=== PATIENT | male | born 1950 | race Caucasian/White ===

== ENCOUNTER 2017-10-10 09:21 | Observation (INO) | payer MEDICARE ==
[~2017-10-10] VITALS: Ht 172.7 cm; Wt 107.0 kg
[~2017-10-10 09:21] MED LIST: ATOR40TA70 PO; ATOR80TA2 PO; AZIT200S47 PO; Aspirin PO; BUPR150T9 PO; CYCL10TA9 PO; DCS100C PO; DONE10TA5 PO; DONE5TAB4 PO; FLT05NA16 NS; HCT25T PO; LEVO500T69 PO; LISI-556 PO; LISI10TA2 PO; LORA0.5T PO; LORA0.5T34 PO; LSNP10T PO; OMEG1CAP51 PO; OMEP20CA12 PO; OXYC-12 PO; OXYC-190 PO; PRX20T PO; RANO10003 PO; SIMV80TA3 PO; WARF10TA4 PO; WARF5TAB6 PO; WRF10T PO; WRF5T
--- OUTSIDE RECORDS SUMMARY | 2017-10-10 09:27 | XMS REPORT ---
Author Author PHUONG SIERRA [facility] eClinicalWorks Address Unknown Phone Unavailable Care Team Providers Care Warehouse Representative Name Role Phone PHUONG SIERRA CP Unavailable Allergies No Known Allergies Problems Problem Type Condition Code Onset Dates Condition Status Assessment Wrist fracture, right S62.101A Active Problem Essential hypertension, benign 401.1 Active Problem ZOSTAVAX DX V05.8 Active Problem Cough 786.2 Active Problem Other diseases of nasal cavity and sinuses 478.19 Active Problem Acute pharyngitis 462 Active Problem Other and unspecified noninfectious gastroenteritis and colitis 558.9 Active Problem Insomnia, unspecified 780.52 Active Problem Unspecified disorders of bursae and tendons in shoulder region 726.10 Active Problem Pain in joint, shoulder region 719.41 Active Medications No Known Medications Results No Known Results Summary Purpose eClinicalWorks Submission
--- OUTSIDE RECORDS SUMMARY | 2017-10-10 09:27 | XMS REPORT ---
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 Unknown Non Drug Allergy Sep, Unknown SOCIAL HISTORY No smoking Hx information available PLAN OF CARE VITAL SIGNS Height 67 in 2016-09-23 Weight 227 lbs 2016-09-23 Temperature 98.1 degrees Fahrenheit 2016-09-23 Heart Rate 60 bpm 2016-09-23 Respiratory Rate 22 2016-09-23 BMI 35.55 kg/m2 2016-09-23 Blood pressure systolic 140 mmHg 2016-09-23 Blood pressure diastolic 86 mmHg 2016-09-23 MEDICATIONS Medication Instructions Dosage Frequency Start Date End Date Duration Status Coumadin 10 mg Orally MTWF then 12.5 on &VITAL 1 tablet Active donepezil 5 mg take 1 tablet (5 mg) by oral route once daily in the evening Dec, Active Wellbutrin SR 150 MG TAKE ONE TABLET BY MOUTH TWICE DAILY 30 Active Aspirin 81 mg 1 tablet by Oral route 1 time per day Oct, Active Ativan 0.5 mg 1 tablet by Oral route 1 time per day PRN Feb, Active Fish Oil 1000 MG Orally Once a day 4 capsule 24h Active Flonase 50 mcg/actuation 1 sprays by Nasal route 2 times per dayin each nostril Apr, Active Tylenol/Codeine #3 300-30 MG Orally every 6 hrs 1 tablet as needed 6h Sep, Active atorvastatin 40 mg take 1 tablet (40 mg) by oral route once daily Mar, Active Hydrochlorothiazide 25 MG Orally Once a day 1 tablet 24h Active Omeprazole 20 mg take 1 capsule (20 mg) by oral route once daily before a meal Dec, Active Lisinopril 5 MG Orally Once a day 1 tablet 24h Active Promethazine-Codeine 6.25-10 MG/5ML Orally every 6 hrs 5 ml as needed 6h Aug, Active RESULTS Name Result Date Reference Range Xray : Chest (IN HOUSE) 2016-09-23 PROCEDURES Procedure Date Ordered Related Diagnosis Body Site CHEST X-RAY Sep 23, 2016 [facility] VISIT ESTABLISHED PATIENT Sep 23, 2016 Office Visit, Est Pt., Level 3 Sep 23, 2016 IMMUNIZATIONS No Known Immunizations
--- OUTSIDE RECORDS SUMMARY | 2017-10-10 09:27 | XMS REPORT ---
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 Unknown Non Drug Allergy Aug, Unknown SOCIAL HISTORY No smoking Hx information available PLAN OF CARE Activity Details Follow Up 2 - 3 Days, prn Reason: VITAL SIGNS Height 67 in 2016-09-14 Weight 232.4 lbs 2016-09-14 Temperature 97.1 degrees Fahrenheit 2016-09-14 Heart Rate 52 bpm 2016-09-14 Respiratory Rate 18 2016-09-14 BMI 36.40 kg/m2 2016-09-14 Blood pressure systolic 152 mmHg 2016-09-14 Blood pressure diastolic 82 mmHg 2016-09-14 MEDICATIONS Medication Instructions Dosage Frequency Start Date End Date Duration Status Fish Oil 1000 MG Orally Once a day 4 capsule 24h Active Flonase 50 mcg/actuation 1 sprays by Nasal route 2 times per dayin each nostril Apr, Active Ativan 0.5 mg 1 tablet by Oral route 1 time per day PRN Feb, Active Wellbutrin SR 150 MG TAKE ONE TABLET BY MOUTH TWICE DAILY 30 Active Omeprazole 20 mg take 1 capsule (20 mg) by oral route once daily before a meal Dec, Active Hydrochlorothiazide 25 MG Orally Once a day 1 tablet 24h Active Lisinopril 5 MG Orally Once a day 1 tablet 24h Active PredniSONE 10 mg Orally twice a day 1 tablet 12h Aug, Sep, 05 days Active atorvastatin 40 mg take 1 tablet (40 mg) by oral route once daily Mar, Active Aspirin 81 mg 1 tablet by Oral route 1 time per day Oct, Active Promethazine-Codeine 6.25-10 MG/5ML Orally every 6 hrs 5 ml as needed 6h Aug, Active Guaifenesin 400 MG Orally every 4 hrs 1 tablet as needed 4h Sep, Active donepezil 5 mg take 1 tablet (5 mg) by oral route once daily in the evening Dec, Active Coumadin 10 mg Orally MTWF then 12.5 on & 1 tablet Active RESULTS No Results PROCEDURES Procedure Date Ordered Related Diagnosis Body Site [facility] VISIT ESTABLISHED PATIENT Sep 14, 2016 Office Visit, Est Pt., Level 3 Sep 14, 2016 IMMUNIZATIONS No Known Immunizations
--- OUTSIDE RECORDS SUMMARY | 2017-10-10 09:27 | XMS REPORT ---
Author CRISS Jose [facility] eClinicalWorks Address Unknown Phone Unavailable Care Team Providers Care Food Order Delivery Runner Name Role Phone CRISS FUENTES CP Unavailable Allergies, Adverse Reactions, Alerts Substance Reaction Event Type N.K.D.A. Info Not Available Non Drug Allergy Problems Problem Type Condition Code Onset Dates Condition Status Assessment Bronchitis J40 Active Problem Essential hypertension, benign 401.1 Active [...] in joint, shoulder region 719.41 Active Medications Medication Code System Code Instructions Start Date End Date Status Dosage Flonase NDC 0 50 mcg/actuation 2 spray(s) intranasally 2 times a day May 14, 2013 1 sprays by Nasal route 2 times per dayin each nostril Omeprazole [facility] [address]-98 20 mg December 27, 2013 take 1 capsule ( 20 mg) by oral route once daily before a meal Coumadin [facility] [address]-34 10 MG Orally MWF then 12.5 on TWSS 1 tablet Hydrochlorothiazide [facility] [address]-34 25 MG Orally Once a day 1 tablet Ativan [facility] [address]-36 0.5 mg February 18, 2014 1 tablet by Oral route 1 time per day PRN donepezil NDC 0 5 mg December 27, 2013 take 1 tablet (5 mg) by oral route once daily in the evening Aspirin [facility] [address]-00 81 mg Nov 15, 2014 1 tablet by Oral route 1 time per day atorvastatin NDC 0 40 mg March 27, 2014 take 1 tablet (40 mg) by oral route once daily Lisinopril [facility] [address]-14 5 MG Orally Once a day 1 tablet Lorazepam NDC 0 Oral 1 tab Doxycycline Hyclate [facility] [address]-87 100 MG Orally 2 times a day Sep 15, 2015 Sep 22, 2015 1 capsule Procedures Procedure Coding System Code Date Office Visit, Ken Pt., Level 2 CPT-4 74891 Sep 15, 2015 [facility] VISIT ESTABLISHED PATIENT CPT-4 G0467 Sep 15, 2015 Vital Signs Date/Time: Sep 15, 2015 Temperature 97.6 F Weight 231.1 lbs Height 67 in BMI 36.19 Index Blood Pressure Diastolic 74 mmHg Blood Pressure Systolic 142 mmHg Cardiac Monitoring Heart Rate 64 bpm Results No Known Results Summary Purpose eClinicalWorks Submission
--- OUTSIDE RECORDS SUMMARY | 2017-10-10 09:27 | XMS REPORT ---
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 Unknown Non Drug Allergy Sep, Unknown SOCIAL HISTORY No smoking Hx information available PLAN OF CARE VITAL SIGNS Height 67 in 2016-10-07 Weight 231 lbs 2016-10-07 Temperature 97.7 degrees Fahrenheit 2016-10-07 Heart Rate 54 bpm 2016-10-07 Respiratory Rate 22 2016-10-07 Oximetry on room air:98 % 2016-10-07 BMI 36.18 kg/m2 2016-10-07 Blood pressure systolic 130 mmHg 2016-10-07 Blood pressure diastolic 80 mmHg 2016-10-07 MEDICATIONS Medication Instructions Dosage Frequency Start Date End Date Duration Status Omeprazole 20 mg take 1 capsule (20 mg) by oral route once daily before a meal Dec, Active Wellbutrin SR 150 MG TAKE ONE TABLET BY MOUTH TWICE DAILY 30 Active Flonase 50 mcg/actuation 1 sprays by Nasal route 2 times per dayin each nostril Apr, Active Aspirin 81 mg 1 tablet by Oral route 1 time per day Oct, Active Ativan 0.5 mg 1 tablet by Oral route 1 time per day PRN Feb, Active Fish Oil 1000 MG Orally Once a day 4 capsule 24h Active atorvastatin 40 mg take 1 tablet (40 mg) by oral route once daily Mar, Active Coumadin 10 mg Orally MTWF then 12.5 on &VITAL 1 tablet Active donepezil 5 mg take 1 tablet (5 mg) by oral route once daily in the evening Dec, Active Lisinopril 5 MG Orally Once a day 1 tablet 24h Active Tessalon Perles 100 MG Orally Three times a day 1 capsule as needed 8h Sep, Active Promethazine-Codeine 6.25-10 MG/5ML Orally every 6 hrs 5 ml as needed 6h Aug, Active Hydrochlorothiazide 25 MG Orally Once a day 1 tablet 24h Active RESULTS No Results PROCEDURES Procedure Date Ordered Related Diagnosis Body Site MEASURE BLOOD OXYGEN LEVEL Oct 07, 2016 [facility] VISIT ESTABLISHED PATIENT Oct 07, 2016 Office Visit, Est Pt., Level 3 Oct 07, 2016 IMMUNIZATIONS No Known Immunizations
--- OUTSIDE RECORDS SUMMARY | 2017-10-10 09:27 | XMS REPORT ---
Author Author TYRESE WHITAKER Organization eClinicalWorks Address Unknown Phone Unavailable Care Team Providers Care Photostat Operator Helper Name Role Phone TYRESE WHITAKER CP Unavailable Allergies No Known Allergies Problems Problem Type Condition Code Onset Dates Condition Status Problem Essential hypertension, benign 401.1 Active Problem [...]
--- OUTSIDE RECORDS SUMMARY | 2017-10-10 09:27 | XMS REPORT ---
Author PHUONG Jamison [facility] eClinicalWorks Address Unknown Phone Unavailable Care Team Providers Care In Tube Conversion Technician Name Role Phone PHUONG SIERRA CP Unavailable Allergies, Adverse Reactions, Alerts Substance Reaction Event Type N.K.D.A. Info Not Available Non Drug Allergy Problems Problem Type Condition Code Onset Dates Condition Status Assessment Fall due to stumbling W01.0XXA Active Problem Essential hypertension, benign 401.1 Active Problem ZOSTAVAX DX V05.8 Active Assessment Pain in right arm M79.601 Active Problem Cough 786.2 Active Problem Other [...] Instructions Start Date End Date Status Dosage Omeprazole [facility] [address]-28 20 mg December 27, 2013 take 1 capsule ( 20 mg) by oral route once daily before a meal donepezil NDC 0 5 mg December 27, 2013 take 1 tablet (5 mg) by oral route once daily in the evening Lorazepam ND 0 Oral 1 tab Hydrochlorothiazide [facility] [address]-32 25 MG Orally Once a day 1 tablet Ativan [facility] 2[facility] [address]-21 0.5 mg February 18, 2014 1 tablet by Oral route 1 time per day PRN atorvastatin NDC 0 40 mg March 27, 2014 take 1 tablet (40 mg) by oral route once daily Coumadin [facility] 2[facility] [address]-76 10 MG Orally MWF then 12.5 on TWSS 1 tablet Lisinopril [facility]NOTE 2] [address]-75 5 MG Orally Once a day 1 tablet Flonase [facility]NOTE 2] [address]-58 50 mcg/actuation 2 spray(s) intranasally 2 times a day May 14, 2013 1 sprays by Nasal route 2 times per dayin each nostril Aspirin [facility] 2] [address]-90 81 mg Nov 15, 2014 1 tablet by Oral route 1 time per day Procedures Procedure Coding System Code Date [facility] VISIT ESTABLISHED PATIENT CPT-4 G0467 Aug 15, 2015 Office Visit, Est Pt., Level 3 CPT-4 03600 Aug 15, 2015 X-RAY EXAM OF WRIST CPT-4 03926 Aug 15, 2015 Vital Signs Date/Time: Aug 15, 2015 Temperature 97.6 F Weight 230 lbs Height 67 in BMI 36.02 Index Blood Pressure Diastolic 70 mmHg Blood Pressure Systolic 142 mmHg Cardiac Monitoring Heart Rate 64 bpm Results No Known Results Summary Purpose eClinicalWorks Submission
--- OUTSIDE RECORDS SUMMARY | 2017-10-10 09:27 | XMS REPORT ---
Author TYRESE Lee [facility] eClinicalWorks Address Unknown Phone Unavailable Care Team Providers Care Geoduck Diver Name Role Phone TYRESE WHITAKER CP Unavailable Allergies, Adverse Reactions, Alerts Substance [...] Instructions Start Date End Date Status Dosage atorvastatin NDC 0 40 mg March 27, 2014 take 1 tablet (40 mg) by oral route once daily ProAir HFA [facility] [address]-18 90 mcg/Actuation Sep 28, 2011 inhale 2 puffs by inhalation route every 4-6 hours as neededPRN Lorazepam NDC 0 Oral 1 tab Zithromax Z-Ayush [facility] [address]-91 250 MG Orally Once a day Oct 01, 2015 Oct 06, 2015 2 tablets on the first day, then 1 tablet daily for 4 days donepezil NDC 0 5 mg December 27, 2013 take 1 tablet (5 mg) by oral route once daily in the evening Omeprazole [facility] [address]-58 20 mg December 27, 2013 take 1 capsule ( 20 mg) by oral route once daily before a meal Guaifenesin [facility] [address]-24 400 MG Orally every 4 hrs Oct 01, 2015 1 tablet as needed Coumadin [facility] [address]-49 10 MG Orally MWF then 12.5 on TWSS 1 tablet Aspirin [facility] [address]-24 81 mg Nov 15, 2014 1 tablet by Oral route 1 time per day Lisinopril [facility] [address]-97 5 MG Orally Once a day 1 tablet Flonase NDC 0 50 mcg/actuation 2 spray(s) intranasally 2 times a day May 14, 2013 1 sprays by Nasal route 2 times [place] [address]-05 0.5 mg February 18, 2014 1 tablet by Oral route 1 time per day PRN Hydrochlorothiazide [facility] [address]-62 25 MG Orally Once a day 1 tablet Procedures Procedure Coding System Code Date [facility] VISIT ESTABLISHED PATIENT CPT-4 G0467 Oct 01, 2015 Office Visit, Est Pt., Level 3 CPT-4 64683 Oct 01, 2015 MEASURE BLOOD OXYGEN LEVEL CPT-4 02315 Oct 01, 2015 Vital Signs Date/Time: Oct 01, 2015 Temperature 97.7 F Weight 230 lbs Height 67 in Oximetry 97 % Blood Pressure Diastolic 68 mmHg Blood Pressure Systolic 144 mmHg Cardiac Monitoring Heart Rate 52 bpm BMI 36.02 Index Results No Known Results Summary Purpose eClinicalWorks Submission
--- OUTSIDE RECORDS SUMMARY | 2017-10-10 09:27 | XMS REPORT ---
Author Author PHUONG SIERRA [facility] eClinicalWorks Address Unknown Phone Unavailable Care Team Providers Care Mushroom Sorter Grader Name Role Phone PHUONG SIERRA CP Unavailable [...]
--- OUTSIDE RECORDS SUMMARY | 2017-10-10 09:27 | XMS REPORT ---
Author TYRESE Lee [facility] eClinicalWorks Address Unknown Phone Unavailable Care Team Providers Care Pipe Cleaner Name Role Phone TYRESE WHITAKER CP Unavailable Allergies, Adverse Reactions, Alerts Substance Reaction Event Type N.K.D.A. Info Not Available Non Drug Allergy Problems Problem Type Condition Code Onset Dates Condition Status Problem ZOSTAVAX DX V05.8 Active Problem Insomnia, unspecified 780.52 Active Problem Essential hypertension, benign 401.1 Active Assessment Anxiety F41.9 Active Assessment Essential (primary) hypertension I10 Active Problem Acute pharyngitis 462 Active Problem Cough 786.2 Active Problem Essential (primary) hypertension I10 Active Problem Pain in joint, shoulder region 719.41 Active Problem Other and unspecified noninfectious gastroenteritis and colitis 558.9 Active Problem Other diseases of nasal cavity and sinuses 478.19 Active Problem Unspecified disorders of bursae and tendons in shoulder region 726.10 Active Medications Medication Code System Code Instructions Start Date End Date Status Dosage Ativan [facility] [address]-54 0.5 mg February 18, 2014 1 tablet by Oral route 1 time per day PRN Lisinopril [facility] [address]-18 5 MG Orally Once a day 1 tablet Coumadin [facility] [address]-13 10 MG Orally MWF then 12.5 on TWSS 1 tablet Hydrochlorothiazide [facility] [address]-57 25 MG Orally Once a day 1 tablet Flonase [facility] [address]-97 50 mcg/actuation 2 spray(s) intranasally 2 times a day May 14, 2013 1 sprays by Nasal route 2 times per dayin each nostril Guaifenesin [facility] [address]-39 400 MG Orally every 4 hrs Oct 01, 2015 1 tablet as needed Lorazepam NDC 0 Oral 1 tab donepezil NDC 0 5 mg December 27, 2013 take 1 tablet (5 mg) by oral route once daily in the evening atorvastatin NDC 0 40 mg March 27, 2014 take 1 tablet (40 mg) by oral route once daily Aspirin [facility] [address]-94 81 mg Nov 15, 2014 1 tablet by Oral route 1 time per day ProAir HFA [facility] [address]-29 90 mcg/Actuation Sep 28, 2011 inhale 2 puffs by inhalation route every 4-6 hours as neededPRN Wellbutrin SR [facility] 04792981096 150 MG TAKE ONE TABLET BY MOUTH TWICE DAILY Omeprazole [facility] [address]-72 20 mg December 27, 2013 take 1 capsule ( 20 mg) by oral route once daily before a meal Procedures Procedure Coding System Code Date Office Visit, Est Pt., Level 3 CPT-4 23214 April 01, 2016 [facility] VISIT ESTABLISHED PATIENT CPT-4 G0467 April 01, 2016 Vital Signs Date/Time: April 01, 2016 Cardiac Monitoring Heart Rate 56 bpm Weight 230.4 lbs Height 67 in Blood Pressure Diastolic 77 mmHg Blood Pressure Systolic 142 mmHg Results No Known Results Summary Purpose eClinicalWorks Submission
--- OUTSIDE RECORDS SUMMARY | 2017-10-10 09:28 | XMS REPORT | Continuity of Care Document ---
Author Author [facility] Organization [facility] Address Unknown Phone Unavailable Allergies Active Description Code Type Severity Reaction Onset Reported/Identified Relationship to Patient Clinical Status Yes No Known Drug Allergies [id number] Drug Allergy Mild N/A 07/12/2009 Medications There is no data. Problems Date Dx Coded Attending Type Code Diagnosis Diagnosed By 10/08/2010 466.0 ACUTE BRONCHITIS 10/08/2010 466.0 ACUTE BRONCHITIS 10/08/2010 KAYLEEN MCCALLUM APRN 466.0 ACUTE BRONCHITIS 10/08/2010 MARKUS PARR APRN 466.0 ACUTE BRONCHITIS 10/08/2010 CRISS FUENTES MD 466.0 ACUTE BRONCHITIS 10/08/2010 TYRESE WHITAKER APRN 466.0 ACUTE BRONCHITIS 10/08/2010 ULISES DANIELLE DO 466.0 ACUTE BRONCHITIS 10/08/2010 ULISES DANIELLE DO 466.0 ACUTE BRONCHITIS 10/08/2010 BETSY HAIR APRN 466.0 ACUTE BRONCHITIS 10/08/2010 BETSY HAIR APRN 466.0 ACUTE BRONCHITIS 10/08/2010 TYRESE WHITAKER APRN 466.0 ACUTE BRONCHITIS 11/11/2010 300.00 ANXIETY UNSPEC 11/11/2010 300.00 ANXIETY UNSPEC 11/11/2010 KAYLEEN MCCALLUM APRN 300.00 ANXIETY UNSPEC 11/11/2010 MARKUS PARR APRN 300.00 ANXIETY UNSPEC 11/11/2010 CRISS FUENTES MD 300.00 ANXIETY UNSPEC 11/11/2010 TYRESE WHITAKER APRN 300.00 ANXIETY UNSPEC 11/11/2010 ULISES DANIELLE DO 300.00 ANXIETY UNSPEC 11/11/2010 ULISES DANIELLE DO K 300.00 ANXIETY UNSPEC 11/11/2010 BETSY HAIR APRN 300.00 ANXIETY UNSPEC 11/11/2010 BETSY HAIR APRN 300.00 ANXIETY UNSPEC 11/11/2010 TYRESE WHITAKER APRN 300.00 ANXIETY UNSPEC 11/18/2010 465.9 UPPER RESPIRATORY INFECTION 11/18/2010 465.9 UPPER RESPIRATORY INFECTION 11/18/2010 KAYLEEN MCCALLUM APRN 465.9 UPPER RESPIRATORY INFECTION 11/18/2010 MARKUS PARR APRN 465.9 UPPER RESPIRATORY INFECTION 11/18/2010 CRISS FUENTES MD 465.9 UPPER RESPIRATORY INFECTION 11/18/2010 TYRESE WHITAKER APRN 465.9 UPPER RESPIRATORY INFECTION 11/18/2010 DANIELLE DO, ULISES K 465.9 UPPER RESPIRATORY INFECTION 11/18/2010 DANIELLE DO, ULISES K 465.9 UPPER RESPIRATORY INFECTION 11/18/2010 BETSY HAIR APRN 465.9 UPPER RESPIRATORY INFECTION 11/18/2010 BETSY HAIR APRN 465.9 UPPER RESPIRATORY INFECTION 11/18/2010 TYRESE WHITAKER APRN 465.9 UPPER RESPIRATORY INFECTION 03/08/2011 Ot 272.0 03/08/2011 Ot 300.00 03/08/2011 Ot 401.9 03/08/2011 Ot 414.00 03/08/2011 Ot 807.01 03/08/2011 Ot E000.8 03/08/2011 Ot E849.0 03/08/2011 Ot E884.9 03/08/2011 Ot V43.3 03/08/2011 Ot V58.61 03/08/2011 Ot V58.69 03/15/2011 Ot 272.0 03/15/2011 Ot 285.9 03/15/2011 Ot 401.9 03/15/2011 Ot 414.00 03/15/2011 Ot 429.3 03/15/2011 Ot 511.9 03/15/2011 Ot 518.0 03/15/2011 Ot 530.81 03/15/2011 Ot 564.00 03/15/2011 Ot 574.20 03/15/2011 Ot 790.29 03/15/2011 Ot 807.04 03/15/2011 Ot E000.8 03/15/2011 Ot E849.0 03/15/2011 Ot E884.9 03/15/2011 Ot V15.82 03/15/2011 Ot V43.3 03/15/2011 Ot V45.81 03/15/2011 Ot V57.1 03/15/2011 Ot V58.61 03/15/2011 Ot V58.69 08/09/2011 461.9 SINUSITIS ACUTE 08/09/2011 461.9 SINUSITIS ACUTE 08/09/2011 KAYLEEN MCCALLUM APRN 461.9 SINUSITIS ACUTE 08/09/2011 MARKUS PARR APRN 461.9 SINUSITIS ACUTE 08/09/2011 CRISS FUENTES MD 461.9 SINUSITIS ACUTE 08/09/2011 TYRESE WHITAKER APRN 461.9 SINUSITIS ACUTE 08/09/2011 DANIELLE DO, ULISES K 461.9 SINUSITIS ACUTE 08/09/2011 DANIELLE DO, ULISES K 461.9 SINUSITIS ACUTE 08/09/2011 BETSY HAIR APRN 461.9 SINUSITIS ACUTE 08/09/2011 BETSY HAIR APRN 461.9 SINUSITIS ACUTE 08/09/2011 TYRESE WHITAKER APRN 461.9 SINUSITIS ACUTE 03/16/2012 V05.8 ZOSTAVAX DX 03/16/2012 V05.8 ZOSTAVAX DX 03/16/2012 KAYLEEN MCCALLUM APRN V05.8 ZOSTAVAX DX 03/16/2012 MARKUS PARR APRN V05.8 ZOSTAVAX DX 03/16/2012 CRISS FUENTES MD V05.8 ZOSTAVAX DX 03/16/2012 TYRESE WHITAKER APRN V05.8 ZOSTAVAX DX 03/16/2012 DANIELLE DO, ULISES K V05.8 ZOSTAVAX DX 03/16/2012 DANIELLE DO, ULISES K V05.8 ZOSTAVAX DX 03/16/2012 BETSY HAIR APRN V05.8 ZOSTAVAX DX 03/16/2012 BETSY HAIR APRN V05.8 ZOSTAVAX DX 03/16/2012 TYRESE WHITAKER APRN V05.8 ZOSTAVAX DX 04/03/2012 780.52 INSOMNIA UNSPECIFIED 04/03/2012 780.52 INSOMNIA UNSPECIFIED 04/03/2012 KAYLEEN MCCALLUM APRN 780.52 INSOMNIA UNSPECIFIED 04/03/2012 MARKUS PARR APRN N 780.52 INSOMNIA UNSPECIFIED 04/03/2012 CRISS FUENTES MD 780.52 INSOMNIA UNSPECIFIED 04/03/2012 TYRESE WHITAKER APRN 780.52 INSOMNIA UNSPECIFIED 04/03/2012 DANIELLE DO, ULISES K 780.52 INSOMNIA UNSPECIFIED 04/03/2012 LOLIS EVANS ULISES K 780.52 INSOMNIA UNSPECIFIED 04/03/2012 BETSY HAIR APRN 780.52 INSOMNIA UNSPECIFIED 04/03/2012 BETSY HAIR APRN 780.52 INSOMNIA UNSPECIFIED 04/03/2012 TYRESE WHITAKER APRN 780.52 INSOMNIA UNSPECIFIED 09/20/2012 462 PHARYNGITIS ACUTE 09/20/2012 KAYLEEN MCCALLUM APRN 462 PHARYNGITIS ACUTE 09/20/2012 MARKUS PARR APRN N 462 PHARYNGITIS ACUTE 09/20/2012 CRISS FUENTES MD 462 PHARYNGITIS ACUTE 09/20/2012 TYRESE WHITAKER APRN 462 PHARYNGITIS ACUTE 09/20/2012 GIANFRANCO DANIELLE DOA K 462 PHARYNGITIS ACUTE 09/20/2012 GIANFRANCO DANIELLE DOA K 462 PHARYNGITIS ACUTE 09/20/2012 BETSY HAIR APRN 462 PHARYNGITIS ACUTE 09/20/2012 BETSY HAIR APRN 462 PHARYNGITIS ACUTE 09/20/2012 TYRESE WHITAKER APRN 462 PHARYNGITIS ACUTE 09/20/2013 MARKUS PARR APRN N 478.19 OTHER DISEASES OF NASAL CAVITY AND SINUSES 09/20/2013 MARKUS PARR APRN N 786.2 COUGH 09/20/2013 CRISS FUENTES MD 478.19 OTHER DISEASES OF NASAL CAVITY AND SINUSES 09/20/2013 CRISS FUENTES MD 786.2 COUGH 09/20/2013 TYRESE WHITAKER APRN 478.19 OTHER DISEASES OF NASAL CAVITY AND SINUSES 09/20/2013 TYRESE WHITAKER APRN 786.2 COUGH 09/20/2013 DANIELLE DO ULISES K 478.19 OTHER DISEASES OF NASAL CAVITY AND SINUSES 09/20/2013 DANIELLE DO, ULISES K 786.2 COUGH 09/20/2013 DANIELLE DO ULISES K 478.19 OTHER DISEASES OF NASAL CAVITY AND SINUSES 09/20/2013 DANIELLE DO ULISES K 786.2 COUGH 09/20/2013 BETSY HAIR APRN 478.19 OTHER DISEASES OF NASAL CAVITY AND SINUSES 09/20/2013 BETSY HAIR APRN 786.2 COUGH 09/20/2013 BETSY HAIR APRN 478.19 OTHER DISEASES OF NASAL CAVITY AND SINUSES 09/20/2013 BETSY HAIR APRN 786.2 COUGH 09/20/2013 TYRESE WHITAKER APRN 478.19 OTHER DISEASES OF NASAL CAVITY AND SINUSES 09/20/2013 TYRESE WHITAKER APRN 786.2 COUGH 11/01/2013 GABINO WOLF, MILIND Valdovinos Ot 530.10 11/01/2013 GABINO WOLF, MILIND Valdovinos Ot 574.20 11/01/2013 GABINO WOLF, MILIND Valdovinos Ot 786.50 11/01/2013 GABINO WOLF, MILIND Valdovinos Ot 789.06 11/01/2013 MILIND LLOYD MD Ot V58.61 11/01/2013 GABINO WOLF, MILIND Valdovinos Ot V58.69 12/27/2013 CRISS FUENTES MD 558.9 OTHER AND UNSPECIFIED NONINFECTIOUS GASTROENTERITIS AND COLITIS 12/27/2013 TYRESE WHITAKER APRN 558.9 OTHER AND UNSPECIFIED NONINFECTIOUS GASTROENTERITIS AND COLITIS 12/27/2013 ULISES DANIELLE DO 558.9 OTHER AND UNSPECIFIED NONINFECTIOUS GASTROENTERITIS AND COLITIS 12/27/2013 ULISES DANIELLE DO 558.9 OTHER AND UNSPECIFIED NONINFECTIOUS GASTROENTERITIS AND COLITIS 12/27/2013 BETSY HAIR APRN 558.9 OTHER AND UNSPECIFIED NONINFECTIOUS GASTROENTERITIS AND COLITIS 12/27/2013 BETSY HAIR APRN 558.9 OTHER AND UNSPECIFIED NONINFECTIOUS GASTROENTERITIS AND COLITIS 12/27/2013 TYRESE WHITAKER APRN 558.9 OTHER AND UNSPECIFIED NONINFECTIOUS GASTROENTERITIS AND COLITIS 03/27/2014 ULISES DANIELLE DO 719.41 PAIN- SHOULDER 03/27/2014 ULISES DANIELLE DO 719.41 PAIN- SHOULDER 03/27/2014 BETSY HAIR APRN 719.41 PAIN- SHOULDER 03/27/2014 BETSY HAIR APRN 719.41 PAIN- SHOULDER 03/27/2014 TYRESE WHITAKER APRN 719.41 PAIN- SHOULDER 10/17/2014 Ot 786.09 10/17/2014 Ot 807.02 10/17/2014 Ot E000.8 10/17/2014 Ot E849.0 10/17/2014 Ot E884.9 10/18/2014 Ot 786.09 10/18/2014 Ot 807.02 10/18/2014 Ot E000.8 10/18/2014 Ot E849.0 10/18/2014 Ot E884.9 10/20/2014 DOM KERR MD Ot 397.0 10/20/2014 DOM KERR MD Ot 411.1 10/20/2014 DOM KERR MD Ot 414.01 10/20/2014 DOM KERR MD Ot 414.2 10/20/2014 DOM KERR MD Ot 414.4 10/20/2014 DOM KERR MD Ot 424.0 10/20/2014 DOM KERR MD Ot V15.82 10/20/2014 DOM KERR MD Ot V43.3 10/20/2014 DOM KERR MD Ot V45.81 10/20/2014 DOM KERR MD Ot V58.61 10/20/2014 DOM KERR MD Ot V58.69 10/20/2014 DOM KERR MD Ot V64.1 10/24/2014 BETSY HAIR APRN 726.10 DISORDERS OF BURSAE AND TENDONS IN SHOULDER REGION UNSPECIFIED 10/24/2014 TYRESE WHITAKER APRN 726.10 DISORDERS OF BURSAE AND TENDONS IN SHOULDER REGION UNSPECIFIED 11/15/2014 TYRESE WHITAKER APRN 401.1 HYPERTENSION, BENIGN ESSENTIAL Procedures Code Description [place] [address] STREP A (IN-HOUSE) 09/20/2012 22986 MONO TEST (IN-HOUSE) 09/20/2012 ORTHOPEDI BETSY HAIR 03/27/2014 JOINT INJECTION- INTERMEDIATE JOINT 03/28/2014 [id number] XRAY SHOULDER RIGHT COMP 2 VIEWS 03/28/2014 JOINT INJECTION- INTERMEDIATE JOINT 07/04/2014 J1040 DEPO MEDROL 80 MG INJ 07/04/2014 JOINT INJECTION- INTERMEDIATE JOINT 10/24/2014 Results There is no data. Encounters ACCT No. Visit Date/Time Discharge Status Pt. Type Provider Facility Loc./Unit Complaint [id number] 10/17/2014 22:10:00 10/20/2014 12:45:00 DIS Outpatient DOM KERR MD [facility] [id number] 11/01/2013 01:09:00 11/01/2013 04:55:00 DIS Emergency GABINO WOLF, MILIND Valdovinos [facility] ER [id number] 10/17/2014 21:55:00 Document Registration [id number] 04/15/2011 16:15:00 Document Registration [id number] 03/18/2011 08:55:00 Document Registration [id number] 03/12/2011 11:59:00 Document Registration [id number] 03/07/2011 01:10:00 Document Registration [id number] 12/13/2014 11:15:00 12/13/2014 23:59:59 CLS Outpatient TYRESE WHITAKER APRN [id number] 10/24/2014 15:41:00 10/24/2014 23:59:59 CLS Outpatient BETSY HAIR APRN [id number] 07/04/2014 15:35:00 07/04/2014 23:59:59 CLS Outpatient BETSY HAIR APRN [id number] 05/09/2014 12:46:00 05/09/2014 23:59:59 CLS Outpatient ULISES DANIELLE DO [id number] 03/28/2014 12:26:00 03/28/2014 23:59:59 CLS Outpatient ULISES DANIELLE DO [id number] 03/27/2014 16:24:00 03/27/2014 23:59:59 CLS Outpatient TYRESE WHITAKER APRN [id number] 12/27/2013 16:35:00 12/27/2013 23:59:59 CLS Outpatient CRISS FUENTES MD [id number] 09/20/2013 12:58:00 09/20/2013 23:59:59 CLS Outpatient MARKUS PARR APRN [id number] 01/09/2013 10:13:00 01/09/2013 23:59:59 CLS Outpatient KAYLEEN MCCALLUM APRN [id number] 09/20/2012 18:05:00 09/20/2012 23:59:59 CLS Outpatient [id number] 05/15/2012 16:35:00 05/15/2012 23:59:59 CLS Outpatient
[2017-10-10 09:57] LABS: BASOPHILS % (AUTO) 0 % (0-10); EOSINOPHILS % (AUTO) 0 % (0-10); HEMATOCRIT 39 % (40-54); HEMOGLOBIN 13.6 G/DL (13.3-17.7); LYMPHOCYTES # (AUTO) 1.8 X 10^3 (1.0-4.0); LYMPHOCYTES % (AUTO) 18 % (12-44); MEAN CORPUSCULAR HEMOGLOBIN 32 PG (25-34); MEAN CORPUSCULAR HGB CONC 35 G/DL (32-36); MEAN CORPUSCULAR VOLUME 92 FL (80-99); MEAN PLATELET VOLUME 10.7 FL (7.4-10.4); MONOCYTES # (AUTO) 3.3 X 10^3 (0.0-1.0); MONOCYTES % (AUTO) 34 % (0-12); NEUTROPHILS # (AUTO) 4.6 X 10^3 (1.8-7.8); NEUTROPHILS % (AUTO) 47 % (42-75); PLATELET COUNT 135 10^3/uL (130-400); RED BLOOD COUNT 4.25 10^6/uL (4.35-5.85); RED CELL DISTRIBUTION WIDTH 14.2 % (10.0-14.5); WHITE BLOOD COUNT 9.6 10^3/uL (4.3-11.0)
[2017-10-10] MEDS ORDERED: RT-ALBUTEROL/IPRATROPIUM 3 ML (DUONEB) VIAL INH ONE (10:00)
--- NOTE | 2017-10-10 10:00 | ED Cough/URI ---
General Chief Complaint: Cough/Cold/Flu Symptoms Stated Complaint: COUGH/CONGESTION Nursing Triage Note: ARRIVED VIA AMB TO ROOM 03. SLIGHTLY UNSTEADY GAIT. STATES HE HAD A COUGH FOR ABOUT 3 MONTHS THEN HE WAS OVER IT. STATES THE COUGH CAME BACK WORSE IN THE LAST 3 DAYS. COMPLAINS OF FEVER. ALSO STATES HE HAS BEEN COUGHING UP BLOOD, HAVING A BLOODY NOSE, AND NOTICED BLOOD DRAINING FROM RIGHT EAR. Source: patient, family Exam Limitations: no limitations History of Present Illness Date Seen by Provider: Oct 10, 2017 Time Seen by Provider: 09:55 Initial Comments This 67-year-old white male presents with a two-month history of persistent cough. The patient admitted to the [place] in [place] and has been treated with Zithromax and [id number] medications for cough without improvement. The patient is status post aortic valve replacement for stenosis. The patient and his have been informed that the aortic valve replacement is beginning to deteriorate. He has had no associated chest pain or diaphoresis. The patient has had hemoptysis. Patient is on aspirin and Coumadin. In this 2 month interval the patient has been treated with Zithromax without improvement. Allergies and Home Medications Allergies Coded Allergies: No Known Drug Allergies (Unverified , 07/12/09) Home Medications Atorvastatin Calcium 80 Mg Tablet, 40 MG PO DAILY, (Reported) TAKES 1/2 (80MG) TABLET Bupropion HCl 150 Mg Tablet.er, 150 MG PO BID, (Reported) Docosahexanoic Acid/Epa 1 Cap Capsule, 4,000 MG PO DAILY, (Reported) TAKES 4 (1000MG) CAPSULES Donepezil HCl 10 Mg Tablet, 5 MG PO DAILY, (Reported) TAKES 1/2 (10MG) TABLET Fluticasone Propionate 16 Gm [place], 2 SPRAY NS DAILY PRN for CONGESTION, ( Reported) Hydrochlorothiazide 25 Mg Tab, 25 MG PO DAILY, (Reported) Lisinopril 10 Mg Tablet, 5 MG PO DAILY, (Reported) TAKES 1/2 (10MG) TABLET Lorazepam 0.5 Mg Tablet, 0.5 MG PO DAILY PRN for ANXIETY, (Reported) Omeprazole 20 Mg Capsule.dr, 20 MG PO DAILY, (Reported) Ranolazine 1,000 Mg Tab.sr.12h, 500 MG PO BID, #60 Ref 2 Prescribed by: DOM KERR on 10/20/14 1201 Warfarin Sodium 5 Mg Tablet, 10 MG PO MON, WED, TUE, (Reported) TAKES 2 (5MG) TABLETS Warfarin Sodium 5 Mg Tablet, 12.5 MG PO ,,,, (Reported) TAKES 2 & 1/2 (5MG) TABLETS [Aspirin] 81 MG TABEC, 81 MG PO DAILY, #100 Prescribed by: DOM KERR on 10/20/14 1201 Constitutional: fever, malaise EENTM: other (patient had bleeding from the right external canal after using a Q-tip cleaning his ears. This occurred a week ago.), No hearing loss Respiratory: see HPI, cough Cardiovascular: No chest pain, No palpitations Gastrointestinal: No abdominal pain, No diarrhea, No nausea, No vomiting Genitourinary: No hematuria Musculoskeletal: No back pain Skin: No rash Psychiatric/Neurological: No Symptoms Reported Hematologic/Lymphatic: No Symptoms Reported Immunological/Allergic: no symptoms reported Past Rhtmaka-Nrzack-Efqigi Hx Patient Social History Alcohol Use: Denies Use Recreational Drug Use: No Smoking Status: Former Smoker Recent Foreign Travel: No Contact w/Someone Who Travel: No Recent Infectious Disease Expo: No Recent Hopitalizations: Yes (HEMRRHOIDECTOMY; CHEST WALL CONTUSION 03/07/11) Immunizations Up To Date Tetanus Booster (TDap): More than 5yrs PED Vaccines UTD: Yes Date of Pneumonia Vaccine: Jun 19, 2010 Date of Influenza Vaccine: Jun 26, 2014 Surgeries History of Surgeries: Yes (PYLON CYST REMOVED-1970 & 1975) Surgeries: Cardiac, CABG Respiratory History of Respiratory Disorde: Yes Respiratory Disorders: Pneumonia Cardiovascular History of Cardiac Disorders: Yes (OPEN HEART SURGERY, 3 BIPASSES, AORTIC VALVE REPLACEMENT) Cardiac Disorders: High Cholesterol, Hypertension Neurological History of Neurological Disord: Yes (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) Reproductive System Hx Reproductive Disorders: No Sexually Transmitted Disease: No HIV/AIDS: No Gastrointestinal History of Gastrointestinal Di: Yes Gastrointestinal Disorders: Gastroesophageal Reflux Musculoskeletal History of Musculoskeletal Dis: Yes (RIGHT ROTATOR CUFF DAMAGE, RIGHT ANKLE FX , 4 RIBS FX ON RIGHT SIDE) Musculoskeletal Disorders: Arthritis, Fractures Endocrine History of Endocrine Disorders: No HEENT HEENT Disorders: Cataract Loss of Vision: Denies Hearing Impairment: Denies Cancer History of Cancer: No Psychosocial History of Psychiatric Problem: Yes Behavioral Health Disorders: Anxiety, Depression Integumentary History of Skin or Integumenta: No Blood Transfusions History of Blood Disorders: No Adverse Reaction to a Blood Tr: No Reviewed Nursing Assessment Reviewed/Agree w Nursing PMH: Yes Family Medical History Family Medial History: BIPASS G8 BROTHER G8 BROTHER G8 BROTHER G8 BROTHER FH: coronary artery disease G8 BROTHER G8 BROTHER G8 BROTHER G8 BROTHER Hypercholesterolemia 19 FATHER G8 BROTHER G8 BROTHER G8 BROTHER G8 BROTHER G8 SISTER Hypertension 19 FATHER G8 BROTHER G8 BROTHER G8 BROTHER G8 BROTHER G8 SISTER Myocardial infarction 19 FATHER Physical Exam Vital Signs Vital Sign - Last 12Hours 10/10/17 09:25 Temp 101.0 Pulse 82 Resp 18 B/P (MAP) 142/70 (94) Pulse Ox 92 O2 Delivery Room Air Capillary Refill : Less Than 3 Seconds General Appearance: WD/WN, no apparent distress Eyes: Bilateral Eye Normal Inspection HEENT: other (abrasion is noted in the right external canal that is healing well. No significant findings on examination of the tympanic membrane was appreciated.) Neck: non-tender, full range of motion, supple Respiratory: decreased breath sounds, wheezing Cardiovascular: normal peripheral pulses, regular rate, rhythm Gastrointestinal: normal bowel sounds, non tender, soft Extremities: normal range of motion, non-tender, normal inspection Neurologic/Psychiatric: no motor/sensory deficits, alert, normal mood/affect Skin: normal color, warm/dry, No rash Focused Exam Evaluation Lactate Level Laboratory Tests 10/10/17 09:50: Lactic Acid Level 1.24 Lactic Acid Level Laboratory Tests Test 10/10/17 09:50 Lactic Acid Level 1.24 MMOL/L (0.50-2.00) Progress/Results/Core Measures Suspected Sepsis Recent Fever Within 48 Hours: Yes Infection Criteria Present: Suspected New Infection New/Unexplained Altered Menta: No Sepsis Screen: No Definite Risk Sepsis Diagnosis: SIRS Temperature:101.0 Pulse: 82 Respiratory Rate: 18 Laboratory Tests 10/10/17 09:50: White Blood Count 9.6 Blood Pressure 142 /70 Mean: 94 Laboratory Tests 10/10/17 09:50: Lactic Acid Level 1.24 Laboratory Tests 10/10/17 09:50: INR Comment 2.1H, Platelet Count 135 Results/Orders Lab Results Laboratory Tests Test 10/10/17 09:50 Range/Units White Blood Count 9.6 4.3-11.0 10^3/uL Red Blood Count 4.25 L 4.35-5.85 10^6/uL Hemoglobin 13.6 13.3-17.7 G/DL Hematocrit 39 L 40-54 % Mean Corpuscular Volume 92 80-99 FL Mean Corpuscular Hemoglobin 32 25-34 PG Mean Corpuscular Hemoglobin Concent 35 32-36 G/DL Red Cell Distribution Width 14.2 10.0-14.5 % Platelet Count 135 130-400 10^3/uL Mean Platelet Volume 10.7 H 7.4-10.4 FL Neutrophils (%) (Auto) 47 42-75 % Lymphocytes (%) (Auto) 18 12-44 % Monocytes (%) (Auto) 34 H 0-12 % Eosinophils (%) (Auto) 0 0-10 % Basophils (%) (Auto) 0 0-10 % Neutrophils # (Auto) 4.6 1.8-7.8 X 10^3 Lymphocytes # (Auto) 1.8 1.0-4.0 X 10^3 Monocytes # (Auto) 3.3 H 0.0-1.0 X 10^3 Eosinophils # (Auto) 0.0 0.0-0.3 10^3/uL Basophils # (Auto) 0.0 0.0-0.1 10^3/uL Neutrophils % (Manual) 55 % Lymphocytes % (Manual) 16 % Monocytes % (Manual) 28 % Eosinophils % (Manual) 0 % Basophils % (Manual) 0 % Band Neutrophils 1 % Blood Morphology Comment NORMAL Prothrombin Time 23.5 H 12.2-14.7 SEC INR Comment 2.1 H 0.8-1.4 Lactic Acid Level 1.24 0.50-2.00 MMOL/L Troponin I < 0.30 <0.30 NG/ML B-Type Natriuretic Peptide 208.5 H <100.0 PG/ML Micro Results Microbiology 10/10/17 Influenza Types A,B Antigen (HUBER) - Final, Complete My Orders Orders - CHARIS RYDER MD Influenza A And B Antigens (10/10/17 09:39) Cbc With Automated Diff (10/10/17 09:39) Chest Pa/Lat (2 View) (10/10/17 09:39) Blood Culture (10/10/17 09:39) Lactic Acid Analyzer (10/10/17 09:39) Albuterol/Ipra Inhalation Soln (Duoneb I (10/10/17 10:00) Svn Sm Volume Nebulizer Rt-Rfs (10/10/17 09:54) Blood Culture (10/10/17 09:56) Manual Differential (10/10/17 09:50) Protime With Inr (10/10/17 10:00) Ekg Tracing (10/10/17 10:00) Troponin I (10/10/17 10:00) BNP (10/10/17 10:00) Acetaminophen Tablet (Tylenol Tablet) (10/10/17 10:30) Ceftriaxone Injection (Rocephin Injectio (10/10/17 11:00) Oseltamivir 75 Mg (10's) Caps (Tamiflu 7 (10/10/17 21:00) Medications Given in ED Current Medications Medications Dose Ordered Sig/Kim Route Start Time Stop Time Status Last Admin Dose Admin Acetaminophen 1,000 mg ONCE ONCE PO 10/10/17 10:30 10/10/17 10:31 DC 10/10/17 10:42 1,000 MG Vital Signs/I&O Vital Sign - Last 12Hours 10/10/17 09:25 Temp 101.0 Pulse 82 Resp 18 B/P (MAP) 142/70 (94) Pulse Ox 92 O2 Delivery Room Air Capillary Refill : Less Than 3 Seconds Blood Pressure Mean: 94 Progress Note : Time: 11:11 Progress Note The patient's flu A was positive. Patient was started on 75 mg of Tamiflu orally in the emergency department. Patient's chest x-ray failed to demonstrate evidence of an acute infiltrate. Patient's d-dimer was less than thousand. His troponin was normal. Telephone consultation was undertaken with Dr. Monsalve [facility] who is kind enough to admit the patient for further observation care. Given that patient's significant clinical presentation believe hospitalization is reasonable. I initiated Rocephin 2 g IV to cover for secondary bacterial infection due to the length of the patient's symptoms and the acuity of his presentation. I ordered an echo of the patient's heart and consult with Dr. Saini as the aortic valve replacement by history is failing. Departure Communication (Admissions) Time/Spoke to Admitting Phy: 11:[address] Monsalve. Impression Impression: Primary Impression: Influenza Additional Impression: Bronchitis Disposition: ADMITTED INPATIENT Condition: Improved Admissions Decision to Admit Reason: Admit from ER (General) Decision to Admit/Date: Oct 10, 2017 Time/Decision to Admit Time: 11:15 Departure-Patient Inst. Referrals: [facility] (PCP/Family) Primary Care Physician CHARIS RYDER MD Oct 10, 2017 10:00
[2017-10-10 10:19] LABS: INR 2.1 (0.8-1.4); PROTHROMBIN TIME PATIENT 23.5 SEC (12.2-14.7)
--- NOTE | 2017-10-10 10:22 | Diagnostic Imaging Report ---
INDICATION: Cough and coughing up blood. TIME OF EXAM: 10:33 AM Correlation is made with prior study 10/17/2014. FINDINGS: The heart size is stable. There are changes of median sternotomy and CABG. There is a slightly linear parenchymal density in the right base, perhaps atelectasis or minimal infiltrate. Otherwise lungs are clear. No effusion is seen. Pulmonary vascularity is unremarkable. There is no pneumothorax. There does appear to be an age-indeterminate fracture involving the right seventh posterior rib. There may also be an age-indeterminate fracture of the right posterior eighth rib. Clinical correlation is recommended. IMPRESSION: 1. Age-indeterminate right posterior seventh and eighth rib fractures with probable minimal underlying parenchymal atelectasis. No pneumothorax or pleural fluid is seen. Dictated by: Dictated on workstation # [id number]
[2017-10-10 10:27] LABS: BAND NEUTROPHILS 1 %; BASOPHILS % (MANUAL) 0 %; EOSINOPHILS % (MANUAL) 0 %; LYMPHOCYTES % (MANUAL) 16 %; MONOCYTES % (MANUAL) 28 %; NEUTROPHILS % (MANUAL) 55 %
[2017-10-10 10:28] LABS: RBC MORPH NORMAL
[2017-10-10] MEDS ORDERED: ACETAMINOPHEN 500 MG TAB (TYLENOL) PO ONE (10:30)
[2017-10-10] MEDS ORDERED: cefTRIAXone INJECTION 2,000 MG in D5W 50 ML IVPB SOLUTION 50 ML IV ONE (11:00)
--- OUTSIDE RECORDS SUMMARY | 2017-10-10 11:21 | XMS REPORT | Continuity of Care Document ---
Author Author [facility] Organization [facility] Address Unknown Phone Unavailable Allergies Active Description Code Type Severity Reaction Onset Reported/Identified Relationship to Patient Clinical Status Yes No Known Drug Allergies [id number] Drug Allergy Mild N/A 07/12/2009 Medications There [...] 10/18/2014 Ot E849.0 10/18/2014 Ot E884.9 10/20/2014 CIRILO WOLF, DOM German Ot 397.0 10/20/2014 CIRILO WOLF, DOM Germna Ot 411.1 10/20/2014 CIRILO WOLF, DOM German Ot 414.01 10/20/2014 CIRILO WOLF, DOM German Ot 414.2 10/20/2014 CIRILO WOLF, DOM German Ot 414.4 10/20/2014 CIRILO WOLF, DOM German Ot 424.0 10/20/2014 DOM KERR MD Ot V15.82 10/20/2014 DOM KERR MD Ot V43.3 10/20/2014 DOM KERR MD Ot V45.81 10/20/2014 DOM KERR MD Ot V58.61 10/20/2014 DOM KERR MD Ot V58.69 10/20/2014 CIRILO WOLF TYRESEALEXANDRA German Ot V64.1 10/24/2014 BETSY HAIR APRN 726.10 DISORDERS OF BURSAE AND TENDONS IN SHOULDER REGION UNSPECIFIED 10/24/2014 TYRESE WHITAKER APRN 726.10 DISORDERS OF BURSAE AND TENDONS IN SHOULDER REGION UNSPECIFIED 11/15/2014 TYRESE WHITAKER APRN 401.1 HYPERTENSION, BENIGN ESSENTIAL Procedures Code Description [place] [address] STREP A (IN-HOUSE) 09/20/2012 78418 MONO TEST (IN-HOUSE) 09/20/2012 ORTHOPEDI BETSY HAIR 03/27/2014 JOINT INJECTION- INTERMEDIATE JOINT 03/28/2014 47299 XRAY SHOULDER RIGHT COMP 2 VIEWS 03/28/2014 JOINT INJECTION- INTERMEDIATE JOINT 07/04/2014 J1040 DEPO MEDROL 80 MG INJ 07/04/2014 JOINT INJECTION- INTERMEDIATE JOINT 10/24/2014 Results Test Result Range Complete blood count (CBC) with automated white blood cell (WBC) differential - 10/10/17 09:50 Blood leukocytes automated count (number/volume) 9.6 10*3/uL 4.3-11.0 Blood erythrocytes automated count (number/volume) 4.25 10*6/uL 4.35-5.85 Venous blood hemoglobin measurement (mass/volume) 13.6 g/dL 13.3-17.7 Blood hematocrit (volume fraction) 39 % 40-54 Automated erythrocyte mean corpuscular volume 92 [foz_us] 80-99 Automated erythrocyte mean corpuscular hemoglobin (mass per erythrocyte) 32 pg 25-34 Automated erythrocyte mean corpuscular hemoglobin concentration measurement ( mass/volume) 35 g/dL 32-36 Automated erythrocyte distribution width ratio 14.2 % 10.0-14.5 Automated blood platelet count (count/volume) 135 10*3/uL 130-400 Automated blood platelet mean volume measurement 10.7 [foz_us] 7.4-10.4 Automated blood neutrophils/100 leukocytes 47 % 42-75 Automated blood lymphocytes/100 leukocytes 18 % 12-44 Blood monocytes/100 leukocytes 34 % 0-12 Automated blood eosinophils/100 leukocytes 0 % 0-10 Automated blood basophils/100 leukocytes 0 % 0-10 Blood neutrophils automated count (number/volume) 4.6 10*3 1.8-7.8 Blood lymphocytes automated count (number/volume) 1.8 10*3 1.0-4.0 Blood monocytes automated count (number/volume) 3.3 10*3 0.0-1.0 Automated eosinophil count 0.0 10*3/uL 0.0-0.3 Automated blood basophil count (count/volume) 0.0 10*3/uL 0.0-0.1 Blood lactic acid measurement (moles/volume) - 10/10/17 09:50 Blood lactic acid measurement (moles/volume) 1.24 mmol/L 0.50-2.00 Influenza virus A and B antigen detection - 10/10/17 09:50 CALL POSITIVES (F1 HELP) CALLED TO FREYA AT [address] [facility] FLU RESULT POSITIVE FOR INFLUENZA A ANTIGEN, NEG FOR B ANTIGEN, BY IA [facility] PT panel in platelet poor plasma by coagulation assay - 10/10/17 09:50 Prothrombin time (PT) in platelet poor plasma by coagulation assay 23.5 s 12.2-14.7 INR in platelet poor plasma or blood by coagulation assay 2.1 0.8-1.4 Blood manual differential performed detection - 10/10/17 09:50 Blood monocytes/100 leukocytes 28 % NRG Manual blood segmented neutrophils/100 leukocytes 55 % NRG Blood band neutrophils/100 leukocytes 1 % NRG Manual blood lymphocytes/100 leukocytes 16 % NRG Manual eosinophils/100 leukocytes in nose 0 % NRG Manual blood basophils/100 leukocytes 0 % NRG Blood erythrocyte morphology finding identification NORMAL NRG Serum or plasma troponin i.cardiac measurement (mass/volume) - 10/10/17 09:50 Serum or plasma troponin i.cardiac measurement (mass/volume) < ng/ mL <0.30 Serum or plasma lithium measurement (moles/volume) - 10/10/17 09:50 BNP level 208.5 pg/mL <100.0 Encounters ACCT No. Visit Date/Time Discharge Status Pt. Type Provider Facility Loc./Unit Complaint [id number] 10/17/2014 22:10:00 10/20/2014 12:45:00 DIS Outpatient CIRILO WOLF, DOM German [facility] [id number] 11/01/2013 01:09:00 11/01/2013 04:55:00 DIS Emergency GABINO WOLF, MILIND Valdovinos [facility] ER [id number] 10/10/2017 10:01:00 Document Registration [id number] 10/17/2014 21:55:00 Document Registration [id number] 04/15/2011 16:15:00 Document Registration [id number] 03/18/2011 08:55:00 Document Registration [id number] 03/12/2011 11:59:00 Document Registration [id number] 03/07/2011 01:10:00 Document Registration [id number] 12/13/2014 11:15:00 12/13/2014 23:59:59 CLS Outpatient TYRESE WHITAKER APRN [id number] 10/24/2014 15:41:00 10/24/2014 23:59:59 CLS Outpatient BETSY HAIR APRN [id number] 07/04/2014 15:35:00 07/04/2014 23:59:59 CLS Outpatient BETSY HAIR APRN [id number] 05/09/2014 12:46:00 05/09/2014 23:59:59 CLS Outpatient ULISES DANIELLE DO [id number] 03/28/2014 12:26:00 03/28/2014 23:59:59 CLS Outpatient ULISES DANIELLE DO [id number] 03/27/2014 16:24:00 03/27/2014 23:59:59 CLS Outpatient TYRESE WHITAKER APRN [id number] 12/27/2013 16:35:00 12/27/2013 23:59:59 CLS Outpatient CRISS FUENTES MD [id number] 09/20/2013 12:58:00 09/20/2013 23:59:59 CLS Outpatient MARKUS PARR APRN [id number] 01/09/2013 10:13:00 01/09/2013 23:59:59 CLS Outpatient KAYLEEN MCCALLUM APRN [id number] 09/20/2012 18:05:00 09/20/2012 23:59:59 CLS Outpatient [id number] 05/15/2012 16:35:00 05/15/2012 23:59:59 CLS Outpatient
[2017-10-10 13:00] VITALS: BP 129/66
[2017-10-10] MEDS ORDERED: RT-ALBUTEROL/IPRATROPIUM 3 ML (DUONEB) VIAL IH PRN (13:30)
[2017-10-10] MEDS ORDERED: OMG1KC PO (13:41)
[2017-10-10] MEDS ORDERED: BECL8.7A7 IH (13:41)
[2017-10-10] MEDS ORDERED: FLUT16SP22 NS (13:41)
[2017-10-10] MEDS ORDERED: D ME PO (13:41)
[2017-10-10] MEDS ORDERED: HYDR25TA4 PO (13:41)
[2017-10-10] MEDS ORDERED: BUPR150T14 PO (13:41)
[2017-10-10] MEDS ORDERED: WARF-48 PO ×2 (13:41)
[2017-10-10] MEDS ORDERED: DONE10TA41 PO (13:41)
[2017-10-10] MEDS ORDERED: LORA10TA7 PO (13:41)
[2017-10-10] MEDS ORDERED: LISI10TA2 PO (13:41)
[2017-10-10] MEDS ORDERED: LORA0.5T PO (13:41)
[2017-10-10] MEDS ORDERED: ASPI-983 PO (13:41)
[2017-10-10] MEDS ORDERED: PANT20TA3 PO (13:41)
[2017-10-10] MEDS ORDERED: ISOS30TA3 PO (13:41)
[2017-10-10] MEDS ORDERED: GUAI-148 PO (13:41)
[2017-10-10] MEDS ORDERED: ATOR80TA76 PO (13:41)
[2017-10-10] MEDS: NS IV 1000 ML 1,000 ML IV SCH (13:54)
[2017-10-10] MEDS ORDERED: RT-ALBUTEROL HFA (VENTOLIN) PER PUFF IH PRN (14:30)
[2017-10-10] MEDS ORDERED: RT-ALBUTEROL SULF 2.5 MG/3 ML PRE-MIX VIAL INH PRN (14:45)
[2017-10-10] MEDS ORDERED: ONDANSETRON 4 MG/2 ML (SDV) Z0FRAN IVP PRN (15:00)
[2017-10-10] MEDS ORDERED: RT-ALBUTEROL HFA (VENTOLIN) PER PUFF IH SCH (15:00)
[2017-10-10] MEDS ORDERED: ALBUTEROL/IPRATROP (COMBIVENT RESPIMAT) 4 GM INHALER INH SCH (15:00)
[2017-10-10] MEDS ORDERED: predniSONE 20 MG TAB PO NR (15:00)
[2017-10-10] MEDS ORDERED: LORazepam 0.5 MG (ATIVAN) TABLET PO PRN (15:00)
[2017-10-10] MEDS ORDERED: HYDROcodone/APAP 5 MG/325 MG (LORTAB) TAB PO PRN (15:00)
[2017-10-10] MEDS ORDERED: RT-ALBUTEROL/IPRATROPIUM 3 ML (DUONEB) VIAL IH SCH ×2 (15:00)
[2017-10-10] MEDS ORDERED: ACETAMINOPHEN 500 MG TAB (TYLENOL) PO PRN (15:00)
[2017-10-10] MEDS ORDERED: RT-ALBUTEROL SULF 2.5 MG/3 ML PRE-MIX VIAL INH SCH (15:00)
[2017-10-10] MEDS ORDERED: RAMELTEON 8 MG (ROZEREM) TAB PO PRN (15:00)
[2017-10-10 16:00] VITALS: BP 134/55
--- NOTE | 2017-10-10 16:50 | Consultation-Cardiology ---
HPI-Cardiology Cardiology Consultation: Date of Consultation 10/10/17 Date of Admission Attending Physician Deisy Monsalve DO Admitting Physician [facility] Consulting Physician IDRIS GAMINO [id number] Hx Patient Social History Alcohol Use: Denies Use Recreational Drug Use: No Smoking Status: Former Smoker Recent Foreign Travel: No Recent Infectious Disease Expo: No Immunizations Up To Date Tetanus Booster (TDap): More than 5yrs Date of Pneumonia Vaccine: Jun 19, 2010 Date of Influenza Vaccine: Jun 26, 2014 Past Medical History PMH As described under Assessment. Family Medical History Family History: BIPASS G8 BROTHER G8 BROTHER G8 BROTHER G8 BROTHER FH: coronary artery disease G8 BROTHER G8 BROTHER G8 BROTHER G8 BROTHER Hypercholesterolemia 19 FATHER G8 BROTHER G8 BROTHER G8 BROTHER G8 BROTHER G8 SISTER Hypertension 19 FATHER G8 BROTHER G8 BROTHER G8 BROTHER G8 BROTHER G8 SISTER Myocardial infarction 19 FATHER Allergies and Home Medications Allergies Coded Allergies: No Known Drug Allergies (Unverified , 10/10/17) Home Medications Aspirin 81 Mg Tablet.dr, 81 MG PO DAILY, (Reported) Atorvastatin Calcium 80 Mg Tablet, 80 MG PO DAILY, (Reported) Beclomethasone Dipropionate 8.7 Gm Aer.w.adap, 1 PUFF IH BID, (Reported) Bupropion HCl 150 Mg Tablet.er, 150 MG PO DAILY, (Reported) D-Methorphan/Acetamin/Doxylamn 118 Ml Liquid, 30 ML PO Q6H PRN for Cough/Aches, (Reported) Donepezil HCl 10 Mg Tablet, 5 MG PO DAILY, (Reported) TAKES 1/2 (10MG) TABLET Fluticasone Propionate 16 Gm Hector.susp, 1 SPRAY NS BID, (Reported) Guaifenesin/Pseudoephedrne HCl 1 Each Tab.er.12h, 1 TAB PO BID, (Reported) Hydrochlorothiazide 25 Mg Tablet, 25 MG PO DAILY, (Reported) Isosorbide Mononitrate 30 Mg Tab.er.24h, 30 MG PO DAILY, (Reported) Lisinopril 10 Mg Tablet, 5 MG PO DAILY, (Reported) TAKES 1/2 (10MG) TABLET Loratadine 10 Mg Tablet, 10 MG PO DAILY, (Reported) Lorazepam 0.5 Mg Tablet, 0.5 MG PO DAILY PRN for ANXIETY, (Reported) [place] 3 Polyunsat Fatty Acids 1,000 Mg Cap, 4,000 MG PO DAILY, (Reported) Pantoprazole Sodium 20 Mg Tablet.dr, 20 MG PO DAILY, (Reported) Warfarin Sodium 5 Mg Tablet, 12.5 MG PO SuFr, (Reported) TAKES 2 & 1/2 (5MG) TABLETS Warfarin Sodium 5 Mg Tablet, 10 MG PO MoTuWeThSa, (Reported) TAKES 2 (5MG) TABLETS Physical Exam-Cardiology Physical Exam Vital Signs/I&O Vital Sign - Last 12Hours 10/10/17 10/10/17 10/10/17 10/11/17 20:00 20:00 21:00 00:10 Temp 100.5 100.5 98.9 Pulse 80 80 70 Resp 20 17 19 B/P (MAP) 124/58 (80) 124/58 (80) 129/63 (85) Pulse Ox 95 95 93 O2 Delivery Nasal Cannula Nasal Cannula Nasal Cannula Nasal Cannula O2 Flow Rate 2.00 2.00 2.00 2.00 10/11/17 10/11/17 10/11/17 00:10 04:17 07:10 Temp 98.9 98.1 Pulse 70 68 Resp 19 18 B/P (MAP) 129/63 (85) 147/60 (89) Pulse Ox 93 94 O2 Delivery Nasal Cannula Nasal Cannula Nasal Cannula O2 Flow Rate 2.00 2.00 2.00 Intake and Output 10/11/17 00:00 Intake Total 1220 ml Output Total 350 ml Balance 870 ml Capillary Refill : Less Than 3 Seconds Data Review Labs Laboratory Tests 10/10/17 09:50: White Blood Count 9.6, Red Blood Count 4.25L, Hemoglobin 13.6, Hematocrit 39L, Mean Corpuscular Volume 92, Mean Corpuscular Hemoglobin 32, Mean Corpuscular Hemoglobin Concent 35, Red Cell Distribution Width 14.2, Platelet Count 135, Mean Platelet Volume 10.7H, Neutrophils (%) (Auto) 47, Lymphocytes (%) (Auto) 18 , Monocytes (%) (Auto) 34H, Eosinophils (%) (Auto) 0, Basophils (%) (Auto) 0, Neutrophils # (Auto) 4.6, Lymphocytes # (Auto) 1.8, Monocytes # (Auto) 3.3H, Eosinophils # (Auto) 0.0, Basophils # (Auto) 0.0, Neutrophils % (Manual) 55, Lymphocytes % (Manual) 16, Monocytes % (Manual) 28, Eosinophils % (Manual) 0, Basophils % (Manual) 0, Band Neutrophils 1, Blood Morphology Comment NORMAL, Prothrombin Time 23.5H, INR Comment 2.1H, Lactic Acid Level 1.24, Troponin I < 0.30, B-Type Natriuretic Peptide 208.5H 10/11/17 06:59: White Blood Count 10.9, Red Blood Count 4.05L, Hemoglobin 12.9L, Hematocrit 37L , Mean Corpuscular Volume 92, Mean Corpuscular Hemoglobin 32, Mean Corpuscular Hemoglobin Concent 35, Red Cell Distribution Width 14.2, Platelet Count 131, Mean Platelet Volume 10.8H, Neutrophils (%) (Auto) 66, Lymphocytes (%) (Auto) 19 , Monocytes (%) (Auto) 16H, Eosinophils (%) (Auto) 0, Basophils (%) (Auto) 0, Neutrophils # (Auto) 7.2, Lymphocytes # (Auto) 2.1, Monocytes # (Auto) 1.7H, Eosinophils # (Auto) 0.0, Basophils # (Auto) 0.0, Prothrombin Time 22.2H, INR Comment 2.0H, Sodium Level 133L, Potassium Level 3.9, Chloride Level 101, Carbon Dioxide Level 20L, Anion Gap 12, Blood Urea Nitrogen 20H, Creatinine 0.90 , Estimat Glomerular Filtration Rate > 60, BUN/Creatinine Ratio 22, Glucose Level 120H, Calcium Level 8.8, Total Bilirubin 0.5, Aspartate Amino Transf (AST/ SGOT) 63H, Alanine Aminotransferase (ALT/SGPT) 35, Alkaline Phosphatase 64, Total Protein 7.3, Albumin 3.9 Microbiology 10/10/17 Influenza Types A,B Antigen (HUBER) - Final, Complete Radiology NAME: PIERRE JULIO [facility] REC#: [id number] PT STATUS: REG ER : 1950 PHYSICIAN: CHARIS RYDER MD ADMIT DATE: 10/10/17/ER Signed Date of Exam: 10/10/17 CHEST PA/LAT (2 VIEW) INDICATION: Cough and coughing up blood. TIME OF EXAM: 10:33 AM Correlation is made with prior study 10/17/2014. FINDINGS: The heart size is stable. There are changes of median sternotomy and CABG. There is a slightly linear parenchymal density in the right base, perhaps atelectasis or minimal infiltrate. Otherwise lungs are clear. No effusion is seen. Pulmonary vascularity is unremarkable. There is no pneumothorax. There does appear to be an age-indeterminate fracture involving the right seventh posterior rib. There may also be an age-indeterminate fracture of the right posterior eighth rib. Clinical correlation is recommended. IMPRESSION: 1. Age-indeterminate right posterior seventh and eighth rib fractures with probable minimal underlying parenchymal atelectasis. No pneumothorax or pleural fluid is seen. Dictated by: Dictated on workstation # [id number] Dict: 10/10/17 1018 Trans: 10/10/17 1042 Interpreted by: ALLYN GONZALEZ MD Electronically signed by: ALLYN GONZALEZ MD 10/10/17 1042 A/P-Cardiology Assessment/Admission Diagnosis Influenza A positive Hemoptysis Coronary artery disease, CABG x3 in 1999, last cath done in Sep [address] Mccray, showing severe disease at the [place] proper circumflex artery that is fairly small artery with heavy calcification, failed balloon intervention, medical therapy is recommended, severe disease in the proximal LAD with patent HAMMOND to LAD, patent vein graft to the diagonal artery, totally occluded right coronary artery with patent vein graft to the right coronary artery. Conservative management History of aortic valve replacement with CABG, secondary to bicuspid aortic valve stenosis, received number 23 [employer] valve Maintained on Coumadin, INR is followed and monitored by the [facility]. INR 2.1 on lab of 10-10-17 Hypertension Hyperlipidemia, followed by the [facility] IDRIS HILLS Oct 10, 2017 16:49
--- NOTE | 2017-10-10 18:04 | Consultation-Cardiology ---
HPI-Cardiology Cardiology Consultation: Date of Consultation 10/10/17 Time Seen by Provider: 16:50 Date of Admission Attending Physician Deisy Monsalve DO Admitting Physician [facility] Consulting Physician JAKI MERCHANT MD, MA, FACP, FACC, [facility] HPI: Chief Complaint: Reason for consultation: H/o AVR 67 yo man hospitalized with shortness of breath and malaise and diagnosed with Influenza A. Shortness of breath is improving. Denies cp or palp or syncope. Notes mild to mod chronic intermittent leg swelling We have been asked to see him because he has a h/o AVR several years ago at the [facility] [place] Review of Systems-Cardiology Review of Systems Constitutional: malaise, tiredness, No weight loss, No weight gain Ears/Nose/Throat: No ear discharge, No nasal drainage, No recent hearing loss Respiratory: As described under HPI Cardiovascular: As described under HPI Gastrointestinal: No diarrhea, No nausea, No vomiting Genitourinary: No hematuria Musculoskeletal: back pain (chronic) Skin: No rash, No ulcerations Psychiatric/Neurological: No seizure, No focal weakness, No syncope Hematologic: No bleeding abnormalities IJY-Qvdtsd-Yhczez Hx Patient Social History Alcohol Use: Denies Use Recreational Drug Use: No Smoking Status: Former Smoker Recent Foreign Travel: No Recent Infectious Disease Expo: No Immunizations Up To Date Tetanus Booster (TDap): More than 5yrs Date of Pneumonia Vaccine: Jun 19, 2010 Date of Influenza Vaccine: Jun 26, 2014 Past Medical History PMH As described under Assessment. Family Medical History Family History: BIPASS G8 BROTHER G8 BROTHER G8 BROTHER G8 BROTHER FH: coronary artery disease G8 BROTHER G8 BROTHER G8 BROTHER G8 BROTHER Hypercholesterolemia 19 FATHER G8 BROTHER G8 BROTHER G8 BROTHER G8 BROTHER G8 SISTER Hypertension 19 FATHER G8 BROTHER G8 BROTHER G8 BROTHER G8 BROTHER G8 SISTER Myocardial infarction 19 FATHER Allergies and Home Medications Allergies Coded Allergies: No Known Drug Allergies (Unverified , 07/12/09) Home Medications Aspirin 81 Mg Tablet.dr, 81 MG PO DAILY, (Reported) Atorvastatin Calcium 80 Mg Tablet, 80 MG PO DAILY, (Reported) Beclomethasone Dipropionate 8.7 Gm Aer.w.adap, 1 PUFF IH BID, (Reported) Bupropion HCl 150 Mg Tablet.er, 150 MG PO DAILY, (Reported) D-Methorphan/Acetamin/Doxylamn 118 Ml Liquid, 30 ML PO Q6H PRN for Cough/Aches, (Reported) Donepezil HCl 10 Mg Tablet, 5 MG PO DAILY, (Reported) TAKES 1/2 (10MG) TABLET Fluticasone Propionate 16 Gm [place].susp, 1 SPRAY NS BID, (Reported) Guaifenesin/Pseudoephedrne HCl 1 Each Tab.er.12h, 1 TAB PO BID, (Reported) Hydrochlorothiazide 25 Mg Tablet, 25 MG PO DAILY, (Reported) Isosorbide Mononitrate 30 Mg Tab.er.24h, 30 MG PO DAILY, (Reported) Lisinopril 10 Mg Tablet, 5 MG PO DAILY, (Reported) TAKES 1/2 (10MG) TABLET Loratadine 10 Mg Tablet, 10 MG PO DAILY, (Reported) Lorazepam 0.5 Mg Tablet, 0.5 MG PO DAILY PRN for ANXIETY, (Reported) [place] 3 Polyunsat Fatty Acids 1,000 Mg Cap, 4,000 MG PO DAILY, (Reported) Pantoprazole Sodium 20 Mg Tablet.dr, 20 MG PO DAILY, (Reported) Warfarin Sodium 5 Mg Tablet, 12.5 MG PO SuFr, (Reported) TAKES 2 & 1/2 (5MG) TABLETS Warfarin Sodium 5 Mg Tablet, 10 MG PO MoTuWeThSa, (Reported) TAKES 2 (5MG) TABLETS Physical Exam-Cardiology Physical Exam Vital Signs/I&O Vital Sign - Last 12Hours 10/10/17 10/10/17 10/10/17 10/10/17 09:25 11:24 12:50 13:00 Temp 101.0 99.2 98.3 Pulse 82 78 69 Resp 18 18 20 B/P (MAP) 142/70 (94) 129/66 (87) Pulse Ox 92 92 91 93 O2 Delivery Room Air Room Air Room Air Nasal Cannula O2 Flow Rate 2.00 Capillary Refill : Less Than 3 Seconds Constitutional: AAO x 3, well-developed, well-nourished HEENT: hearing is well preserved, No xanthelasmas are seen Neck: No carotid bruit, carotid pulses are 2 + bilaterally, with good upstrokes Respiratory: No accessory muscle use, other (Fair bilat air entry, diminished at the bases) Cardiovascular: regular rate-rhythm, S1 and S2, systolic murmur (2-3/6 MSM) Gastrointestinal: No tender, soft, No guarding, No rebound, audible bowel sounds Extremities: No clubbing, No cyanosis, No significant edema Neurologic/Psychiatric: oriented x 3, grossly intact, power is 5/5 both on sides Skin: No rash on exposed areas, No ulcerations on exposed areas Data Review Labs Laboratory Tests 10/10/17 09:50: White Blood Count 9.6, Red Blood Count 4.25L, Hemoglobin 13.6, Hematocrit 39L, Mean Corpuscular Volume 92, Mean Corpuscular Hemoglobin 32, Mean Corpuscular Hemoglobin Concent 35, Red Cell Distribution Width 14.2, Platelet Count 135, Mean Platelet Volume 10.7H, Neutrophils (%) (Auto) 47, Lymphocytes (%) (Auto) 18 , Monocytes (%) (Auto) 34H, Eosinophils (%) (Auto) 0, Basophils (%) (Auto) 0, Neutrophils # (Auto) 4.6, Lymphocytes # (Auto) 1.8, Monocytes # (Auto) 3.3H, Eosinophils # (Auto) 0.0, Basophils # (Auto) 0.0, Neutrophils % (Manual) 55, Lymphocytes % (Manual) 16, Monocytes % (Manual) 28, Eosinophils % (Manual) 0, Basophils % (Manual) 0, Band Neutrophils 1, Blood Morphology Comment NORMAL, Prothrombin Time 23.5H, INR Comment 2.1H, Lactic Acid Level 1.24, Troponin I < 0.30, B-Type Natriuretic Peptide 208.5H Microbiology 10/10/17 Influenza Types A,B Antigen (HUBER) - Final, Complete Laboratory Tests 10/10/17 09:50 A/P-Cardiology Assessment/Admission Diagnosis Influenza A Hemoptysis, probably due to Influenza Coronary artery disease, CABG x3 in 1999, last cath done in Sep [address] Mccray, showing severe disease at the [place] proper circumflex artery that is fairly small artery with heavy calcification, failed balloon intervention, medical therapy recommended, severe disease in the proximal LAD with patent HAMMOND to LAD, patent vein graft to the diagonal artery, totally occluded right coronary artery with patent vein graft to the right coronary artery History of aortic valve due to bicuspid AoV stenosis for which he is stated to have received a number 23 [employer] valve at the time of CABG at [place], [place], several years ago. According to the patient, he has been told by his [facility] physicians that the valve has undergone considerable degeneration, but that he is not suitable for repeat surgery OAC with Coumadin, INR is followed and monitored by the [facility]. INR 2.1 on lab of 10-10-17 Hypertension Hyperlipidemia, followed by the [facility] Discussion and Recomendations * Complex management due to multiple comorbidities * Monitor labs closely * Keep INR in the therapeutic range for a mechanical aortic valve * Obtain echo * I spoke with him in detail and answered CV-related questions JAKI MERCHANT MD FACP FACC [facility] Oct 10, 2017 18:04
[2017-10-10 20:00] VITALS: BP 124/58
[2017-10-10] MEDS ORDERED: FLUTICASONE 110 MCG INHALER (FLOVENT) 12 GM INH SCH (20:00)
[2017-10-10] MEDS ORDERED: RT-FLUTICASONE 110 MCG (FLOVENT) PER PUFF INH SCH (20:00)
[2017-10-10] MEDS: FLUTICASONE NASAL SPRAY (FLONASE) 16 GM BTL NS SCH (20:03)
[2017-10-10] MEDS: guaiFENesin (MUCINEX) 600 MG TAB PO SCH (20:03)
[2017-10-10] MEDS: OSELTAMIVIR 75 MG (TAMIFLU) BOX OF 10 PO SCH (20:03)
[2017-10-10] MEDS ORDERED: [UNRECOGNIZED DRUG - OTHER] PO SCH (21:00)
[2017-10-10] MEDS ORDERED: OSELTAMIVIR 75 MG (TAMIFLU) BOX OF 10 PO SCH (21:00)
[2017-10-10] MEDS ORDERED: BECLOMETHASONE DIPROPIONATE IH SCH (21:00)
[2017-10-11 00:10] VITALS: BP 129/63
[2017-10-11 04:17] VITALS: BP 147/60
[2017-10-11] MEDS ORDERED: PANTOPRAZOLE 20 MG TABLET (PROTONIX) PO SCH (07:00)
[2017-10-11] MEDS ORDERED: predniSONE 20 MG TAB PO SCH (07:00)
[2017-10-11 07:17] LABS: BASOPHILS % (AUTO) 0 % (0-10); EOSINOPHILS % (AUTO) 0 % (0-10); HEMATOCRIT 37 % (40-54); HEMOGLOBIN 12.9 G/DL (13.3-17.7); LYMPHOCYTES # (AUTO) 2.1 X 10^3 (1.0-4.0); LYMPHOCYTES % (AUTO) 19 % (12-44); MEAN CORPUSCULAR HEMOGLOBIN 32 PG (25-34); MEAN CORPUSCULAR HGB CONC 35 G/DL (32-36); MEAN CORPUSCULAR VOLUME 92 FL (80-99); MEAN PLATELET VOLUME 10.8 FL (7.4-10.4); MONOCYTES # (AUTO) 1.7 X 10^3 (0.0-1.0); MONOCYTES % (AUTO) 16 % (0-12); NEUTROPHILS # (AUTO) 7.2 X 10^3 (1.8-7.8); NEUTROPHILS % (AUTO) 66 % (42-75); PLATELET COUNT 131 10^3/uL (130-400); RED BLOOD COUNT 4.05 10^6/uL (4.35-5.85); RED CELL DISTRIBUTION WIDTH 14.2 % (10.0-14.5); WHITE BLOOD COUNT 10.9 10^3/uL (4.3-11.0)
[2017-10-11 07:28] LABS: PROTHROMBIN TIME PATIENT 22.2 SEC (12.2-14.7)
[2017-10-11 07:46] LABS: ALANINE AMINOTRANSFERASE 35 U/L (0-55); ALBUMIN 3.9 GM/DL (3.2-4.5); ALKALINE PHOSPHATASE 64 U/L (40-136); BILIRUBIN,TOTAL 0.5 MG/DL (0.1-1.0); BUN/CREATININE RATIO 22; CALCIUM 8.8 MG/DL (8.5-10.1); CARBON DIOXIDE 20 MMOL/L (21-32); CHLORIDE 101 MMOL/L (98-107); GFR ESTIMATED > 60; GLUCOSE 120 MG/DL (70-105); POTASSIUM 3.9 MMOL/L (3.6-5.0); SODIUM 133 MMOL/L (135-145); TOTAL PROTEIN 7.3 GM/DL (6.4-8.2)
[2017-10-11 08:00] VITALS: BP 166/73
--- NOTE | 2017-10-11 08:32 | Diagnostic Imaging Report ---
INDICATION: Followup bronchitis and influenza. TIME OF EXAM: 7:56 AM Correlation is made with prior study one day earlier. FINDINGS: The heart size is normal. There are changes of median sternotomy. Lungs are clear. No infiltrate, effusion or pneumothorax is seen. A tiny calcified granuloma right midlung is noted. IMPRESSION: Stable chest. No acute feature is detected. Dictated by: Dictated on workstation # [id number]
[2017-10-11] MEDS ORDERED: CEFTRIAXONE IV SCH ×2 (09:00)
[2017-10-11] MEDS ORDERED: ATORVASTATIN 80 MG (LIPITOR) TABLET PO SCH (09:00)
[2017-10-11] MEDS ORDERED: buPROPion SR 150 MG (WELLBUTRIN SR) TAB PO SCH (09:00)
[2017-10-11] MEDS ORDERED: ASPIRIN E.C. 81 MG (ECOTRIN) TAB PO SCH (09:00)
[2017-10-11] MEDS ORDERED: D5W IV SCH ×2 (09:00)
[2017-10-11] MEDS ORDERED: lisINopril 5 MG (PRINIVIL) TABLET PO SCH (09:00)
[2017-10-11] MEDS ORDERED: OMEGA 3 (FISH OIL) 1000 MG CAP PO SCH (09:00)
[2017-10-11] MEDS ORDERED: LORATADINE (CLARITIN) 10 MG TAB PO SCH (09:00)
[2017-10-11] MEDS ORDERED: warFARin 5 MG (COUMADIN) TAB PO SCH (09:00)
[2017-10-11] MEDS ORDERED: DONEPEZIL 10 MG (ARICEPT) TAB PO SCH (09:00)
[2017-10-11] MEDS ORDERED: ISOSORBIDE MONONITRATE 30 MG (IMDUR) TAB PO SCH (09:00)
[2017-10-11] MEDS ORDERED: HYDROCHLOROTHIAZIDE 25 MG (HCTZ) TAB PO SCH (09:00)
--- NOTE | 2017-10-11 09:09 | Discharge Summary ---
Diagnosis/Chief Complaint Date of Admission Oct 10, 2017 at 11:00 Date of Discharge 10/11/17 Admission Diagnosis Admission Diagnosis Influenza A Cough Fever Hx of Aortic Valve Replacement with Mechanical Valve CAD Discharge Diagnosis Influenza A 10/11 -started Tamiflu 10/10, continue BID for 5 day course -pt feels breathing is much improved since yesterday -CXR stable and without acute features, no PNA noted -discharge to home with Tamiflu Cough 10/11 -CXR stable and without evidence of acute process -steroids started as pt reports several months of coughing and suspect chronic bronchitis -5 day prednisone burst, now on day 2 -discharge home with 3 additional days of prednisone 40 mg Fever 10/11 -now resolved, likely secondary to influenza -Tylenol PRN Hx of Aortic Valve Replacement with Mechanical Valve 10/11 -on coumadin therapy, INR 2.1 yesterday, 2.2 this AM -given mechanical valve, pt slightly subtherapeutic, will have patient recheck INR at follow up appt -cardiology consulted in ED because pt reported that his mechanical valve was failing and he was not a candidate for replacement -cardiology recommends therapeutic INR for mechanical valve, control HTN -echo shows moderate aortic stenosis, no significant change from echo done in 2014 CAD 10/11 -hx of 3 vessel CABG -cardiology consult as documented -echo shows LVH with EF 65-70%, dilated L atrium, mild mitral regurgitation, mechanical aortic valve with moderate stenosis -follows with cardiology at [place] -continue to keep follow up appointments as directed by cardiology Chief Complaint/HPI Chief Complaint/HPI Patient presented to ED yesterday with complaint of increasing shortness of breath and cough, and was found to have fever of 101.2 on arrival. Patient reports that he has been sick since June with frequent coughing, and he has been to the clinic multiple times for URI symptoms. Yesterday he began feeling acutely worse, with more coughing and shortness of breath, for which he presented to the ED. He was found to be positive for influenza A. Given pt's multiple co-morbid conditions and report of several months of coughing, he was placed in observation and started on Tamiflu. Based on his report of several months of coughing, suspect chronic bronchitis and prednisone burst was started. This morning the patient reports that his breathing is much improved and he is feeling much better than yesterday. Discharge Summary-OBS Procedures None. Consultations Cardiology Discharge Physical Examination Allergies: Coded Allergies: No Known Drug Allergies (Unverified , 10/10/17) Vitals & I&Os Intake and Output 10/11/17 00:00 Intake Total 1220 ml Output Total 350 ml Balance 870 ml Vital Sign - Last 12Hours Date Time Temp Pulse Resp B/P (MAP) Pulse Ox O2 Delivery O2 Flow Rate FiO2 10/11/17 07:10 Nasal Cannula 2.00 10/11/17 04:17 98.1 68 18 147/60 (89) 94 General Appearance: Alert, Oriented X3, Cooperative, No Acute Distress HEENT: Atraumatic, EOMI, Mucous Memb Moist/[place] Respiratory: Normal Air Movement, Other (scattered wheezes throughout) Cardiovascular: Regular Rate, Normal S1, Normal S2, Other (III/ systolic murmur best heard at LUSB. Known mechanical aortic valve.) Abdominal: Normal Bowel Sounds, Soft, No Tenderness, No Hepatosplenomegaly, No Masses Extremities: No Clubbing, No Cyanosis, Normal Pulses Skin: No Rashes, No Significant Lesion Neuro: Normal Speech, Normal Tone, Sensation Intact, Cranial Nerves 3-12 NL Psych/Mental Status: Mental Status NL, Mood NL Hospital Course see Final Diagnosis Labs Laboratory Tests 10/10/17 09:50: White Blood Count 9.6, Red Blood Count 4.25L, Hemoglobin 13.6, Hematocrit 39L, Mean Corpuscular Volume 92, Mean Corpuscular Hemoglobin 32, Mean Corpuscular Hemoglobin Concent 35, Red Cell Distribution Width 14.2, Platelet Count 135, Mean Platelet Volume 10.7H, Neutrophils (%) (Auto) 47, Lymphocytes (%) (Auto) 18 , Monocytes (%) (Auto) 34H, Eosinophils (%) (Auto) 0, Basophils (%) (Auto) 0, Neutrophils # (Auto) 4.6, Lymphocytes # (Auto) 1.8, Monocytes # (Auto) 3.3H, Eosinophils # (Auto) 0.0, Basophils # (Auto) 0.0, Neutrophils % (Manual) 55, Lymphocytes % (Manual) 16, Monocytes % (Manual) 28, Eosinophils % (Manual) 0, Basophils % (Manual) 0, Band Neutrophils 1, Blood Morphology Comment NORMAL, Prothrombin Time 23.5H, INR Comment 2.1H, Lactic Acid Level 1.24, Troponin I < 0.30, B-Type Natriuretic Peptide 208.5H 10/11/17 06:59: White Blood Count 10.9, Red Blood Count 4.05L, Hemoglobin 12.9L, Hematocrit 37L , Mean Corpuscular Volume 92, Mean Corpuscular Hemoglobin 32, Mean Corpuscular Hemoglobin Concent 35, Red Cell Distribution Width 14.2, Platelet Count 131, Mean Platelet Volume 10.8H, Neutrophils (%) (Auto) 66, Lymphocytes (%) (Auto) 19 , Monocytes (%) (Auto) 16H, Eosinophils (%) (Auto) 0, Basophils (%) (Auto) 0, Neutrophils # (Auto) 7.2, Lymphocytes # (Auto) 2.1, Monocytes # (Auto) 1.7H, Eosinophils # (Auto) 0.0, Basophils # (Auto) 0.0, Prothrombin Time 22.2H, INR Comment 2.0H, Sodium Level 133L, Potassium Level 3.9, Chloride Level 101, Carbon Dioxide Level 20L, Anion Gap 12, Blood Urea Nitrogen 20H, Creatinine 0.90 , Estimat Glomerular Filtration Rate > 60, BUN/Creatinine Ratio 22, Glucose Level 120H, Calcium Level 8.8, Total Bilirubin 0.5, Aspartate Amino Transf (AST/ SGOT) 63H, Alanine Aminotransferase (ALT/SGPT) 35, Alkaline Phosphatase 64, Total Protein 7.3, Albumin 3.9 Microbiology 10/10/17 Influenza Types A,B Antigen (HUBER) - Final, Complete Radiology Reviewed NAME: PIERRE JULIO [facility] REC#: [id number] PT STATUS: REG ER : 1950 PHYSICIAN: CHARIS RYDER MD ADMIT DATE: 10/10/17/ER Signed Date of Exam: 10/10/17 CHEST PA/LAT (2 VIEW) INDICATION: Cough and coughing up blood. TIME OF EXAM: 10:33 AM Correlation is made with prior study 10/17/2014. FINDINGS: The heart size is stable. There are changes of median sternotomy and CABG. There is a slightly linear parenchymal density in the right base, perhaps atelectasis or minimal infiltrate. Otherwise lungs are clear. No effusion is seen. Pulmonary vascularity is unremarkable. There is no pneumothorax. There does appear to be an age-indeterminate fracture involving the right seventh posterior rib. There may also be an age-indeterminate fracture of the right posterior eighth rib. Clinical correlation is recommended. IMPRESSION: 1. Age-indeterminate right posterior seventh and eighth rib fractures with probable minimal underlying parenchymal atelectasis. No pneumothorax or pleural fluid is seen. Dictated by: Dictated on workstation # [id number] Dict: 10/10/17 1018 Trans: 10/10/17 1042 Interpreted by: ALLYN GONZALEZ MD Electronically signed by: ALLYN GONZALEZ MD 10/10/17 1042 Discussion & Recommendations The patient is being discharged on Tamiflu and a prednisone burst. He is to follow up next week in the clinic for an INR recheck, and his coumadin should be adjusted for the targeted range for a mechanical valve (2.5-3.5). Discharge Condition at discharge Stable Instructions to patient/family Please see electronic discharge instructions given to patient. Discharge Medications Reviewed and agree with Discharge Medication list on patient's Discharge Instruction sheet Clinical Quality Measures DVT/VTE Risk/Contraindication: Risk Factor Score Per Nursin RFS Level Per Nursing on Admit: 4+=Very High Copy Copies To 1: [facility]/KEVIN CEVALLOS DO Oct 11, 2017 09:09
[2017-10-11] MEDS: FLUTICASONE NASAL SPRAY (FLONASE) 16 GM BTL NS SCH (09:49)
[2017-10-11] MEDS: guaiFENesin (MUCINEX) 600 MG TAB PO SCH (09:50)
[2017-10-11] MEDS: OSELTAMIVIR 75 MG (TAMIFLU) BOX OF 10 PO SCH (09:52)
[2017-10-11] MEDS: NS IV 1000 ML 1,000 ML IV SCH (09:52)
--- NOTE | 2017-10-11 10:42 | Progress Note-Cardiology ---
Cardiology SOAP Progress Note Subjective: Sitting up in a chair at the bedside. States he feels better. Continues to have a productive cough. No c/o CP or palpitations. Feels shortness of breath has improved. Objective: I&O/Vital Signs Vital Sign - Last 12Hours 10/11/17 10/11/17 10/11/17 10/11/17 00:10 00:10 04:17 07:10 Temp 98.9 98.9 98.1 Pulse 70 70 68 Resp 19 19 18 B/P (MAP) 129/63 (85) 129/63 (85) 147/60 (89) Pulse Ox 93 93 94 O2 Delivery Nasal Cannula Nasal Cannula Nasal Cannula Nasal Cannula O2 Flow Rate 2.00 2.00 2.00 2.00 10/11/17 08:00 Temp 98.3 Pulse 63 Resp 20 B/P (MAP) 166/73 (104) Pulse Ox 94 O2 Delivery Nasal Cannula O2 Flow Rate 2.00 Intake and Output 10/11/17 00:00 Intake Total 1220 ml Output Total 350 ml Balance 870 ml Weight (Pounds): 236 Weight (Ounces): 0.0 Weight (Calculated Kilograms): 107.719836 Constitutional: AAO x 3, well-developed, well-nourished Respiratory: other (coarse throughout with scattered rhonchi) Cardiovascular: regular rate-rhythm, S1 and S2, systolic murmur Gastrointestional: soft, audible bowel sounds Extremities: No clubbing, No cyanosis, No significant edema Neurologic/Psychiatric: oriented x 3, grossly intact, power is 5/5 both on sides Skin: No rash on exposed areas, No ulcerations on exposed areas Results/Procedures: Labs Laboratory Tests 10/11/17 06:59: White Blood Count 10.9, Red Blood Count 4.05L, Hemoglobin 12.9L, Hematocrit 37L , Mean Corpuscular Volume 92, Mean Corpuscular Hemoglobin 32, Mean Corpuscular Hemoglobin Concent 35, Red Cell Distribution Width 14.2, Platelet Count 131, Mean Platelet Volume 10.8H, Neutrophils (%) (Auto) 66, Lymphocytes (%) (Auto) 19 , Monocytes (%) (Auto) 16H, Eosinophils (%) (Auto) 0, Basophils (%) (Auto) 0, Neutrophils # (Auto) 7.2, Lymphocytes # (Auto) 2.1, Monocytes # (Auto) 1.7H, Eosinophils # (Auto) 0.0, Basophils # (Auto) 0.0, Prothrombin Time 22.2H, INR Comment 2.0H, Sodium Level 133L, Potassium Level 3.9, Chloride Level 101, Carbon Dioxide Level 20L, Anion Gap 12, Blood Urea Nitrogen 20H, Creatinine 0.90 , Estimat Glomerular Filtration Rate > 60, BUN/Creatinine Ratio 22, Glucose Level 120H, Calcium Level 8.8, Total Bilirubin 0.5, Aspartate Amino Transf (AST/ SGOT) 63H, Alanine Aminotransferase (ALT/SGPT) 35, Alkaline Phosphatase 64, Total Protein 7.3, Albumin 3.9 Microbiology 10/10/17 Influenza Types A,B Antigen (HUBER) - Final, Complete Laboratory Tests 10/10/17 09:50 10/11/17 06:59 Procedures NAME: PIERRE JULIO [facility] REC#: [id number] PT STATUS: ADM Jaiden : 1950 PHYSICIAN: KEVIN MAYFIELD DO ADMIT DATE: 10/10/17 Signed Date of Exam: 10/11/17 CHEST PA/LAT (2 VIEW) INDICATION: Followup bronchitis and influenza. TIME OF EXAM: 7:56 AM Correlation is made with prior study one day earlier. FINDINGS: The heart size is normal. There are changes of median sternotomy. Lungs are clear. No infiltrate, effusion or pneumothorax is seen. A tiny calcified granuloma right midlung is noted. IMPRESSION: Stable chest. No acute feature is detected. Dictated by: Dictated on workstation # [id number] Dict: 10/11/17818 Trans: 10/11/17924 Interpreted by: ALLYN GONZALEZ MD Electronically signed by: ALLYN GONZALEZ MD 10/11/17924 A/P: Assessment: Influenza A Hemoptysis, probably due to Influenza Coronary artery disease, CABG x3 in 1999, last cath done in Sep [address] Mccray, showing severe disease at the [place] proper circumflex artery that is fairly small artery with heavy calcification, failed balloon intervention, medical therapy recommended, severe disease in the proximal LAD with patent HAMMOND to LAD, patent vein graft to the diagonal artery, totally occluded right coronary artery with patent vein graft to the right coronary artery Cardiac cath of January 04, 2017 at the [facility] in [place], [place] showed on fluoroscopy showed the AV is mechanical,with only one disc tilting. The other seems to be stuck. Coronary status stable. History of aortic valve due to bicuspid AoV stenosis for which he is stated to have received a number 23 [employer] valve at the time of CABG at [place], [place], several years ago. According to the patient, he has been told by his [facility] physicians that the valve has undergone considerable degeneration, but that he is not suitable for repeat surgery. Echocardiogram from December [address] Crawford at the [facility] in [place], [place] LVEF 60-65%. Mild concentric LVH. Grade II LVDD. Dilated LA. Trace MR, TR and AI. Prosthetic AV well seated with mod to severely elevated gradients. PASP approx 30mmHg. MPI of May 2016 at the [facility] in [place], [place] showed a small fixed basal inferoseptal defect suggesting small basal infarct. No stress-induced ischemia. LVEF 65% OAC with Coumadin, INR is followed and monitored by the [facility]. INR 2.1 on lab of 10-10-17 Hypertension Hyperlipidemia, followed by the [facility] Plan: * Complex management due to multiple comorbidities * Monitor labs closely * Keep INR in the therapeutic range for a mechanical aortic valve * Echo - results pending * Dr. Saini spoke with him in detail and answered CV-related questions * We have received his records from the [facility] and reviewed them IDRIS HILLS Oct 11, 2017 10:42
[2017-10-11 12:00] VITALS: BP 124/59
[2017-10-11] MEDS ORDERED: OSLT75C PO (12:00)
[2017-10-11] MEDS ORDERED: PRD20T PO (12:00)
--- NOTE | 2017-10-11 12:04 | Discharge Instructions ---
Discharge [email or web address] Discharge Medications New, Converted or Re-Newed RX: Transmitted to Pharmacy New Medications: Oseltamivir Phosphate (Tamiflu) 75 Mg Cap 1 CAP PO BID for 4 Days, #7 CAP Prednisone (Prednisone) 20 Mg Tab 40 MG PO DAILY@0700 for 3 Days, #6 TAB Continued Medications: Aspirin (Aspirin EC) 81 Mg Tablet.dr 81 MG PO DAILY, TAB Atorvastatin Calcium (Atorvastatin Calcium) 80 Mg Tablet 80 MG PO DAILY, TAB Beclomethasone Dipropionate (Qvar) 8.7 Gm Aer.w.adap 1 PUFF IH BID, GM Bupropion HCl (Bupropion HCl Sr) 150 Mg Tablet.er 150 MG PO DAILY, TAB D-Methorphan/Acetamin/Doxylamn (Nighttime Cold-Flu Liquid) 118 Ml Liquid 30 ML PO Q6H PRN for Cough/Aches, EA Donepezil HCl (Donepezil HCl) 10 Mg Tablet 5 MG PO DAILY, TAB TAKES 1/2 (10MG) TABLET Fluticasone Propionate (Fluticasone Propionate) 16 Gm [place].susp 1 SPRAY NS BID, SPRAY Guaifenesin/Pseudoephedrne HCl (Mucinex D ER Tablet) 1 Each Tab.er.12h 1 TAB PO BID, TAB Hydrochlorothiazide (Hydrochlorothiazide) 25 Mg Tablet 25 MG PO DAILY, TAB Isosorbide Mononitrate (Isosorbide Mononitrate ER) 30 Mg Tab.er.24h 30 MG PO DAILY, TAB Lisinopril (Lisinopril) 10 Mg Tablet 5 MG PO DAILY, TAB TAKES 1/2 (10MG) TABLET Loratadine (Loratadine) 10 Mg Tablet 10 MG PO DAILY, TAB Lorazepam (Lorazepam) 0.5 Mg Tablet 0.5 MG PO DAILY PRN for ANXIETY, TAB [place] 3 Polyunsat Fatty Acids (Fish Oil 1,000 mg Capsule) 1,000 Mg Cap 4000 MG PO DAILY, CAP Pantoprazole Sodium (Pantoprazole Sodium) 20 Mg Tablet.dr 20 MG PO DAILY, TAB Warfarin Sodium (Warfarin Sodium) 5 Mg Tablet 12.5 MG PO SuFr, TAB TAKES 2 & 1/2 (5MG) TABLETS Warfarin Sodium (Warfarin Sodium) 5 Mg Tablet 10 MG PO MoTuWeThSa, TAB TAKES 2 (5MG) TABLETS Patient Instructions Patient Instructions Take medications as prescribed When using home nebulizer, close doors and stay in room with doors closed for 30 minutes after treatment completed in order to help prevent spread of influenza Keep follow up appointment as scheduled Goal/Follow Up Appt: 10/20/17 at 2 P< stevo GAMINO Return to The Hospital For: chest pain or pressure, shortness of breath unrelieved by medication, nausea or vomiting that make you unable to keep down medication, if directed by the extension course counselor provider, or any other emergent complaints or concerns Activity & Diet Discharge Diet: Cardiac Diet Activity as Tolerated: Yes Copy Copies To 1: [facility]/KEVIN CEVALLOS DO Oct 11, 2017 12:04
[2017-10-11 13:50] VITALS: BP 124/59
[2017-10-14] MEDS ORDERED: warFARin 5 MG (COUMADIN) TAB PO SCH (15:00)
== END 2017-10-11 12:00 | disposition home or self-care (01) ==
LOC: EDUNIT# 09:21 → ER 09:23 → UNDOADMOB 11:00 → ICU 11:00 → 4TH 11:01 → ICU 11:01 → UNDOADMOB 13:00 → ICU 13:00 → 4TH 13:00 → UNDODISOB 10-11 13:15
PROVIDERS: ADMIT Family Medicine; ATTEND Family Medicine
DX: J10.1 Influenza due to other identified influenza virus with other respiratory manifestations (principal); R04.2 Hemoptysis; I25.10 Atherosclerotic heart disease of native coronary artery without angina pectoris; Z95.2 Presence of prosthetic heart valve; I10 Essential (primary) hypertension; E78.5 Hyperlipidemia, unspecified; Z79.01 Long term (current) use of anticoagulants; Z79.82 Long term (current) use of aspirin; Z79.899 Other long term (current) drug therapy
CPT/HCPCS: 36415; 71046; 80053; 83605; 83880; 84484; 85007; 85025; 85027; 85610; 87040; 87804; 93005; 93306; 94640; 94760; 96374; G0378

== ENCOUNTER → 2018-08-17 | Outpatient (CLI) | payer MEDICARE, OTHER ==
[~2018-08-17] MED LIST changes: +ASPI-983 PO; +ATOR80TA76 PO; +BECL8.7A7 IH; +BUPR150T14 PO; +D ME PO; +DONE10TA41 PO; +FLUT16SP22 NS; +GUAI-148 PO; +HYDR25TA4 PO; +ISOS30TA3 PO; +LORA10TA7 PO; +OMG1KC PO; +OSLT75C PO; +PANT20TA3 PO; +PRD20T PO; +WARF-48 PO
--- NOTE | 2018-08-17 13:37 | Diagnostic Imaging Report ---
PA and lateral chest at 11:11. Indication: Shortness of breath. The heart size is within normal limits and stable when compared to 10/11/2017. The sternotomy wires and valvular prosthesis noted previously are again evident and no different. The lungs remain clear. There is still no sign of failure, pneumonia or pleural effusion to indicate an acute abnormality. The small granulomas in both lungs seen previously are again evident and unchanged. The mediastinum is not widened. The osseous structures are intact. Healed displaced fractures of the right seventh and eighth ribs are again noted. Impression: There is evidence of prior cardiac surgery and prior trauma to the right thorax. There is no acute cardiopulmonary abnormality identified however. Dictated by: Dictated on workstation # [id number]
== END ==
LOC: RAD 08:56
PROVIDERS: ATTEND Nurse Practitioner Family
DX: R06.02 Shortness of breath (principal); Z98.890 Other specified postprocedural states; Z87.828 Personal history of other (healed) physical injury and trauma
CPT/HCPCS: 71046

== ENCOUNTER 2019-05-17 10:20 | Emergency (ER) | payer MEDICARE, OTHER ==
[~2019-05-17] VITALS: Ht 175.3 cm; Wt 96.2 kg
[2019-05-17] MEDS: ASPIRIN 81 MG CHEW (CHILDREN'S ASA) PO ONE (10:38)
--- NOTE | 2019-05-17 10:42 | ED Cardiac General ---
History of Present Illness General Stated Complaint: NAUSEA;DIZZINESS;COLD SWEATS Source: patient Exam Limitations: no limitations History of Present Illness Date Seen by Provider: May 17, 2019 Time Seen by Provider: 10:37 Initial Comments To ER by private vehicle with reports of an episode of dizziness nausea and diaphoresis this morning while outside trying to start his truck. He assures me this was not strenuous physically. He feels better now but not back to normal, still a bit generally weak. No chest pain now or at any point. History of aortic valve replacement at the [facility] in 2000 secondary to a bicuspid aortic valve stenosis is was replaced with a mechanical number 23 [employer] valve. He has since followed up and been told that there was some degeneration of this valve, states that there were some calcifications that didn't allow one side of the valve to open and The other side of the valve from fully closing. They told him that he was not a candidate for revision of this, he would require open heart surgery and due to comorbidities would likely not survive surgery. also states that patient was given 6 months to live 2 years ago due to the degeneration of the valve. Patient decided not to proceed with open aortic valve replacement as he would likely survive the surgery and instead "live out the time I have left". 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 He is a diabetic and had not yet eaten anything when these symptoms presented. He did not check his sugar. suggests that hypoglycemia could have caused these symptoms. Timing/Duration: changing over time Severity: moderate Activities at Onset: none Prior CP/Workup: other (as above) NTG SL NUCLEAR MEDICINE PET CT TECHNOLOGIST: No ASA po NUCLEAR MEDICINE PET CT TECHNOLOGIST: No Associated Systoms: Nausea/Vomiting Allergies and Home Medications Allergies Coded Allergies: No Known Drug Allergies (Unverified , 10/10/17) Home Medications Aspirin 81 Mg Tablet.dr, 81 MG PO DAILY, (Reported) Atorvastatin Calcium 80 Mg Tablet, 80 MG PO DAILY, (Reported) Beclomethasone Dipropionate 8.7 Gm Aer.w.adap, 1 PUFF IH BID, (Reported) Bupropion HCl 150 Mg Tablet.er, 150 MG PO DAILY, (Reported) D-Methorphan/Acetamin/Doxylamn 118 Ml Liquid, 30 ML PO Q6H PRN for Cough/Aches, (Reported) Donepezil HCl 10 Mg Tablet, 5 MG PO DAILY, (Reported) TAKES 1/2 (10MG) TABLET Fluticasone Propionate 16 Gm [place].susp, 1 SPRAY NS BID, (Reported) Guaifenesin/Pseudoephedrne HCl 1 Each Tab.er.12h, 1 TAB PO BID, (Reported) Hydrochlorothiazide 25 Mg Tablet, 25 MG PO DAILY, (Reported) Isosorbide Mononitrate 30 Mg Tab.er.24h, 30 MG PO DAILY, (Reported) Lisinopril 10 Mg Tablet, 5 MG PO DAILY, (Reported) TAKES 1/2 (10MG) TABLET Loratadine 10 Mg Tablet, 10 MG PO DAILY, (Reported) Lorazepam 0.5 Mg Tablet, 0.5 MG PO DAILY PRN for ANXIETY, (Reported) [place] 3 Polyunsat Fatty Acids 1,000 Mg Cap, 4,000 MG PO DAILY, (Reported) Oseltamivir Phosphate 75 Mg Cap, 1 CAP PO BID Prescribed by: KEVIN MAYFIELD on 10/11/17 1200 Pantoprazole Sodium 20 Mg Tablet.dr, 20 MG PO DAILY, (Reported) Prednisone 20 Mg Tab, 40 MG PO DAILY@0700 Prescribed by: KEVIN MAYFIELD on 10/11/17 1200 Warfarin Sodium 5 Mg Tablet, 12.5 MG PO SuFr, (Reported) TAKES 2 & 1/2 (5MG) TABLETS Warfarin Sodium 5 Mg Tablet, 10 MG PO MoTuWeThSa, (Reported) TAKES 2 (5MG) TABLETS Patient Home Medication List Home Medication List Reviewed: Yes Review of Systems Review of Systems Constitutional: see HPI; No chills, No fever; weakness EENTM: No Symptoms Reported Respiratory: See HPI, Shortness of Air (chronic and unchanged) Cardiovascular: See HPI; Denies Chest Pain, Denies Edema, Denies Irregular Heart Rate; Lightheadedness; Denies Syncope Gastrointestinal: No Symptoms Reported Genitourinary: No Symptoms Reported Musculoskeletal: no symptoms reported Skin: no symptoms reported Psychiatric/Neurological: No Symptoms Reported Endocrine: No Symptoms Reported Past Mwspweu-Ureihd-Cobpfk Hx Patient Social History Recent Hopitalizations: Yes (HEMRRHOIDECTOMY; CHEST WALL CONTUSION 03/07/11) Immunizations Up To Date Tetanus Booster (TDap): More than 5yrs PED Vaccines UTD: Yes Date of Pneumonia Vaccine: Jun 19, 2013 Date of Influenza Vaccine: Jun 19, 2017 Seasonal Allergies Seasonal Allergies: No Past Medical History Surgeries: Yes (PYLON CYST REMOVED-1970 & 1975) Cardiac, CABG Respiratory: Yes Pneumonia Cardiac: Yes (OPEN HEART SURGERY, 3 BIPASSES, AORTIC VALVE REPLACEMENT) High Cholesterol, Hypertension Neurological: Yes (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) Reproductive Disorders: No Sexually Transmitted Disease: No HIV/AIDS: No Genitourinary: No Gastrointestinal: Yes Gastroesophageal Reflux Musculoskeletal: Yes (RIGHT ROTATOR CUFF DAMAGE, RIGHT ANKLE FX, 4 RIBS FX ON RIGHT SIDE) Arthritis, Fractures Endocrine: No Cataract Loss of Vision: Denies Hearing Impairment: Denies Cancer: No Psychosocial: Yes Anxiety, Depression Integumentary: No Blood Disorders: No Adverse Reaction/Blood Tranf: No Family Medical History BIPASS G8 BROTHER G8 BROTHER G8 BROTHER G8 BROTHER FH: coronary artery disease G8 BROTHER G8 BROTHER G8 BROTHER G8 BROTHER Hypercholesterolemia 19 FATHER G8 BROTHER G8 BROTHER G8 BROTHER G8 BROTHER G8 SISTER Hypertension 19 FATHER G8 BROTHER G8 BROTHER G8 BROTHER G8 BROTHER G8 SISTER Myocardial infarction 19 FATHER Physical Exam Vital Signs Vital Signs - First Documented 05/17/19 10:41 Temp 98.2 Pulse 53 Resp 16 B/P (MAP) 147/73 (97) Pulse Ox 97 O2 Delivery Room Air Capillary Refill : Height, Weight, BMI Height: 5'8.00" Weight: 236lbs. 0.0oz. 107.092194zi; 35.9 BMI Method:Stated General Appearance: No Apparent Distress, WD/WN HEENT: PERRL/EOMI, TMs Normal Neck: Full Range of Motion, Normal Inspection Respiratory: Lungs Clear, Normal Breath Sounds, No Accessory Muscle Use, No Respiratory Distress Cardiovascular: No Edema, Normal Peripheral Pulses Gastrointestinal: Non Tender, Soft Extremity: Normal Capillary Refill, Normal Inspection, No Pedal Edema Neurologic/Psychiatric: Alert, Oriented x3 Skin: Normal Color, Warm/Dry Progress/Results/Core Measures Results/Orders Lab Results Laboratory Tests Test 05/17/19 10:34 05/17/19 10:40 05/17/19 12:30 Range/Units Glucometer 100 70-110 MG/DL White Blood Count 6.7 4.3-11.0 10^3/uL Red Blood Count 4.19 L 4.35-5.85 10^6/uL Hemoglobin 13.1 L 13.3-17.7 G/DL Hematocrit 39 L 40-54 % Mean Corpuscular Volume 93 80-99 FL Mean Corpuscular Hemoglobin 31 25-34 PG Mean Corpuscular Hemoglobin Concent 34 32-36 G/DL Red Cell Distribution Width 14.4 10.0-14.5 % Platelet Count 178 130-400 10^3/uL Mean Platelet Volume 10.6 H 7.4-10.4 FL Neutrophils (%) (Auto) 45 42-75 % Lymphocytes (%) (Auto) 35 12-44 % Monocytes (%) (Auto) 19 H 0-12 % Eosinophils (%) (Auto) 2 0-10 % Basophils (%) (Auto) 0 0-10 % Neutrophils # (Auto) 3.0 1.8-7.8 X 10^3 Lymphocytes # (Auto) 2.3 1.0-4.0 X 10^3 Monocytes # (Auto) 1.3 H 0.0-1.0 X 10^3 Eosinophils # (Auto) 0.1 0.0-0.3 10^3/uL Basophils # (Auto) 0.0 0.0-0.1 10^3/uL Neutrophils % (Manual) 41 % Lymphocytes % (Manual) 43 % Monocytes % (Manual) 13 % Eosinophils % (Manual) 3 % Basophils % (Manual) 0 % Band Neutrophils 0 % Acanthocytes SLIGHT Prothrombin Time 18.8 H 12.2-14.7 SEC INR Comment 1.5 H 0.8-1.4 Activated Partial Thromboplast Time 35 24-35 SEC Sodium Level 133 L 135-145 MMOL/L Potassium Level 4.9 3.6-5.0 MMOL/L Chloride Level 100 98-107 MMOL/L Carbon Dioxide Level 21 21-32 MMOL/L Anion Gap 12 5-14 MMOL/L Blood Urea Nitrogen 11 7-18 MG/DL Creatinine 0.87 0.60-1.30 MG/DL Estimat Glomerular Filtration Rate > 60 BUN/Creatinine Ratio 13 Glucose Level 99 70-105 MG/DL Calcium Level 9.3 8.5-10.1 MG/DL Corrected Calcium 8.9 8.5-10.1 MG/DL Magnesium Level 1.7 1.6-2.4 MG/DL Total Bilirubin 0.8 0.1-1.0 MG/DL Aspartate Amino Transf (AST/SGOT) 42 H 5-34 U/L Alanine Aminotransferase (ALT/SGPT) 29 0-55 U/L Alkaline Phosphatase 64 40-136 U/L Myoglobin 98.8 H 10.0-92.0 NG/ML Troponin I < 0.028 < 0.028 <0.028 NG/ML B-Type Natriuretic Peptide 84.0 <100.0 PG/ML Total Protein 8.2 6.4-8.2 GM/DL Albumin 4.5 3.2-4.5 GM/DL My Orders Orders - SAMEER JOYCE APRN Cbc With Automated Diff (05/17/19 10:28) Magnesium (05/17/19 10:28) Chest 1 View, Ap/Pa Only (05/17/19 10:28) Ekg Tracing (05/17/19 10:28) Cardiac Profile 1 (05/17/19 10:28) Comprehensive Metabolic Panel (05/17/19 10:28) Myoglobin Serum (05/17/19 10:28) Protime With Inr (05/17/19 10:28) Partial Thromboplastin Time (05/17/19 10:28) O2 (05/17/19 10:28) Monitor-Rhythm Ecg Trace Only (05/17/19 10:28) Lipid Panel (05/18/19 06:00) Ed Iv/Invasive Line Start (05/17/19 10:28) BNP (05/17/19 10:28) Aspirin Chewable Tablet (Baby Aspirin Ch (05/17/19 10:30) Manual Differential (05/17/19 10:40) Troponin I (05/17/19 12:40) Medications Given in ED Current Medications Medications Dose Ordered Sig/Kim Route Start Time Stop Time Status Last Admin Dose Admin Aspirin 324 mg ONCE ONCE PO 05/17/19 10:30 05/17/19 10:31 DC 05/17/19 10:38 243 MG Vital Signs/I&O 05/17/19 10:41 Temp 98.2 Pulse 53 Resp 16 B/P (MAP) 147/73 (97) Pulse Ox 97 O2 Delivery Room Air Departure Communication (Admissions) Family Conversation 1311-patient states that he feels back to normal at this time. Repeat cardiac enzymes are unremarkable. We will discharge to home for follow-up NAME: [facility] REC#: [id number] PT STATUS: REG ER : 1950 PHYSICIAN: SAMEER JOYCE APRN ADMIT DATE: 05/17/19/ER Draft Date of Exam:05/17/19 CHEST 1 VIEW, AP/PA ONLY INDICATION: Dizziness. Nausea. Weakness. COMPARISON: 08/17/2018 FINDINGS: Single frontal view of the chest demonstrates normal heart size and pulmonary vascularity. The lungs are well aerated and clear. No large pleural effusion or pneumothorax is seen. The visualized osseous structures show no acute abnormalities. Sternotomy wires are noted. IMPRESSION: 1. No acute cardiopulmonary process. Dictated on workstation # [id number] Dict: 05/17/19 1117 Trans: 05/17/19 1118 [id number] Interpreted by: LÁZARO PEARCE MD Electronically signed by: Impression Primary Impression: Diaphoresis Disposition: 01 HOME, SELF-CARE Condition: Improved Departure-Patient Inst. Decision time for Depature: 13:11 Referrals: [facility] (PCP/Family) Primary Care Physician Patient Instructions: NO INSTRUCTIONS GIVEN Add. Discharge Instructions: 1. Follow-up with your doctor this week for recheck. Return to ER for any recurrent symptoms. SAMEER JOYCE APRN May 17, 2019 10:42
[2019-05-17 10:44] LABS: BASOPHILS % (AUTO) 0 % (0-10); EOSINOPHILS # (AUTO) 0.1 10^3/uL (0.0-0.3); EOSINOPHILS % (AUTO) 2 % (0-10); HEMATOCRIT 39 % (40-54); HEMOGLOBIN 13.1 G/DL (13.3-17.7); LYMPHOCYTES # (AUTO) 2.3 X 10^3 (1.0-4.0); LYMPHOCYTES % (AUTO) 35 % (12-44); MEAN CORPUSCULAR HEMOGLOBIN 31 PG (25-34); MEAN CORPUSCULAR HGB CONC 34 G/DL (32-36); MEAN CORPUSCULAR VOLUME 93 FL (80-99); MEAN PLATELET VOLUME 10.6 FL (7.4-10.4); MONOCYTES # (AUTO) 1.3 X 10^3 (0.0-1.0); MONOCYTES % (AUTO) 19 % (0-12); NEUTROPHILS % (AUTO) 45 % (42-75); PLATELET COUNT 178 10^3/uL (130-400); RED CELL DISTRIBUTION WIDTH 14.4 % (10.0-14.5); WHITE BLOOD COUNT 6.7 10^3/uL (4.3-11.0)
[2019-05-17 11:04] LABS: ALANINE AMINOTRANSFERASE 29 U/L (0-55); ALBUMIN 4.5 GM/DL (3.2-4.5); ALKALINE PHOSPHATASE 64 U/L (40-136); BILIRUBIN,TOTAL 0.8 MG/DL (0.1-1.0); BUN/CREATININE RATIO 13; CALCIUM 9.3 MG/DL (8.5-10.1); CARBON DIOXIDE 21 MMOL/L (21-32); CHLORIDE 100 MMOL/L (98-107); CREATININE SERUM 0.87 MG/DL (0.60-1.30); GFR ESTIMATED > 60; GLUCOSE 99 MG/DL (70-105); MAGNESIUM 1.7 MG/DL (1.6-2.4); POTASSIUM 4.9 MMOL/L (3.6-5.0); SODIUM 133 MMOL/L (135-145); TOTAL PROTEIN 8.2 GM/DL (6.4-8.2)
--- NOTE | 2019-05-17 11:18 | Diagnostic Imaging Report ---
INDICATION: Dizziness. Nausea. Weakness. COMPARISON: 08/17/2018 FINDINGS: Single frontal view of the chest demonstrates normal heart size and pulmonary vascularity. The lungs are well aerated and clear. No large pleural effusion or pneumothorax is seen. The visualized osseous structures show no acute abnormalities. Sternotomy wires are noted. IMPRESSION: 1. No acute cardiopulmonary process. Dictated by: Dictated on workstation # [id number]
[2019-05-17 11:23] LABS: BAND NEUTROPHILS 0 %; LYMPHOCYTES % (MANUAL) 43 %; MONOCYTES % (MANUAL) 13 %; NEUTROPHILS % (MANUAL) 41 %
[2019-05-17 11:24] LABS: ACANTHOCYTES SLIGHT; BASOPHILS % (MANUAL) 0 %; EOSINOPHILS % (MANUAL) 3 %
[2019-05-17 11:38] LABS: INR 1.5 (0.8-1.4); PROTHROMBIN TIME PATIENT 18.8 SEC (12.2-14.7)
--- NOTE | 2019-05-17 12:14 | NUR ---
PT RESTING IN BED. PT INFORMED ANOTHER LAB DRAW WILL OCCUR IN APPROX 30 MINS. PT OFFERED WARM BLANKET AND PT ACCEPTED. PT STATES THAT THERE IS NOTHING FURTHER HE NEEDS AT THIS TIME.
[2019-05-17 13:21] VITALS: BP 126/62
== END 2019-05-17 13:18 | disposition home or self-care (01) ==
LOC: EDUNIT# 10:20 → ER 10:21
DX: R61 Generalized hyperhidrosis (principal); I10 Essential (primary) hypertension; F41.9 Anxiety disorder, unspecified; F32.9 Major depressive disorder, single episode, unspecified; E78.00 Pure hypercholesterolemia, unspecified; K21.9 Gastro-esophageal reflux disease without esophagitis; Z95.2 Presence of prosthetic heart valve; Z95.1 Presence of aortocoronary bypass graft; Z79.82 Long term (current) use of aspirin; Z79.51 Long term (current) use of inhaled steroids; Z79.52 Long term (current) use of systemic steroids; Z79.01 Long term (current) use of anticoagulants; Z82.49 Family history of ischemic heart disease and other diseases of the circulatory system
CPT/HCPCS: 36415; 71045; 80053; 82962; 83735; 83874; 83880; 84484; 85007; 85027; 85610; 85730; 93005; 93041

== ENCOUNTER 2021-06-18 05:30 | Outpatient (RCR) | payer OTHER ==
[~2021-06-18] VITALS: Ht 175.3 cm; Wt 99.0 kg
[~2021-06-18 05:30] MED LIST changes: +ASPI-1238 PO; -ASPI-983 PO; -ISOS30TA3 PO; +ISOS30TA82 PO; +LISI10TA25 PO; +METF-397 PO; +PANT20TA18 PO; -PANT20TA3 PO
== END 2021-06-18 15:16 | disposition home or self-care (01) ==
LOC: PREOP 05:30
PROVIDERS: ATTEND Surgery
DX: Z01.812 Encounter for preprocedural laboratory examination (principal); Z20.822 Contact with and (suspected) exposure to COVID-19
CPT/HCPCS: 87635

== ENCOUNTER 2021-06-22 09:44 | Day surgery (SDC) | payer MEDICARE, OTHER ==
[~2021-06-22] VITALS: Ht 175.3 cm; Wt 100.4 kg
[2021-06-22] MEDS ORDERED: LACTATED RINGERS 1,000 ML IV STA (09:53)
[2021-06-22] MEDS ORDERED: HURRICAINE EXT TUBE (BENZOCAINE) XX PRN (10:00)
[2021-06-22 10:20] VITALS: BP 157/82
[2021-06-22] MEDS ORDERED: MIDAZOLAM 2 MG/2 ML (VERSED) VIAL ONE (10:44)
[2021-06-22] MEDS ORDERED: proPOfol 200 MG/20 ML (DIPRIVAN) VIAL IV ONE (10:45)
[2021-06-22 11:58] VITALS: BP 113/74
[2021-06-22 12:00] VITALS: BP 125/67
[2021-06-22 12:05] VITALS: BP 131/73
[2021-06-22 12:10] VITALS: BP 131/73
--- NOTE | 2021-06-22 12:13 | Progress Note-Post Operative ---
Post-Operative Progess Note Surgeon (s)/Office Agent (s) Surgeon ZO LOZANO DO Office Agent: DIDIER AlarconII Pre-Operative Diagnosis dysphagia, screening colon Post-Operative Diagnosis Gastritis Hiatal hernia polyp diverticula int hemorrhoids Procedure & Operative Findings Date of Procedure 06/22/21 Procedure Performed/Findings EGD with bx Colon with hot bx PROCEDURE NOTE: After informed consent was obtained, the patient was brought to the endoscopy suite, placed in bed in left lateral decubitus position. He was administered IV sedation by the HYDROELECTRIC COMPONENT MACHINIST who then monitored vitals the entire time, heart rate, blood pressure and pulse ox and the scope was inserted down the mouth through the esophagus into the stomach. On the way down, noted some mild esophagitis, took a picture, pushed into the stomach, pushed past the antrum into the duodenum. Duodenum looked good. Pulled back and did a biopsy of antrum, then retroflexed the scope, saw a large hiatal hernia, took a picture of this and then pulled the scope into the GE junction, took another picture of the hiatal hernia and then did a biopsy of the GE junction. Pushed the scope back into the stomach, suctioned all the air out of the stomach. At this point pulled the scope up the esophagus and out the mouth. Switched camera, switched gloves, went down below, started the colonoscopy. Pushed all the way into about 150 cm to get all the way to cecum, took a picture of the appendiceal orifice, noted the ileocecal valve and then slowly withdrew the scope. On the way in noted some diverticula and took pictures of them. While removing the scope insufflated to look circumferentially at the zhao starting in the cecum, up the ascending colon to the hepatic flexure, then down the transverse colon, splenic flexure, into the descending colon. In the descending colon saw a flat polyp and elected to do a hot biopsy. Continued down into the sigmoid where I found another polyp and did another hot biopsy. Finally into the rectum, retroflexed in the rectal vault, saw some minimal internal hemorrhoids and took a picture of this. The patient tolerated the procedure and he recovered in the endoscopy suite. Anesthesia Type IV sedation by HYDROELECTRIC COMPONENT MACHINIST Estimated Blood Loss Estimated blood loss (mL): scant Specimens/Packing Specimens Removed antral bx GE jxn bx Desc colon polyp sigmoid polyp ZO LOZANO DO Jun 22, 2021 12:13
--- NOTE | 2021-06-22 12:15 | Progress Note-Pre Operative ---
Pre-Operative Progress Note H&P Reviewed The H&P was reviewed, patient examined and no changes noted. Time Seen by Provider: 11: Date H&P Reviewed: Jun 22, 2021 Time H&P Reviewed: 11:01 Pre-Operative Diagnosis: Dysphagia, Screening colon ZO LOZANO DO Jun 22, 2021 12:15
--- NOTE | 2021-06-22 12:23 | Endoscopy Discharge Instruct ---
Endo Procedure/Findings Findings 1.: Gastritis 2.: Hiatal Hernia 3.: Polyp 4.: Diverticulosis, Internal Hemorrhoids Discharge Instructions - Activity: You might feel a little sleepy until tomorrow. This is due to the medicine you received to relax you. Until tomorrow, you should: NOT drive a car, operate machinery or power tools. NOT drink any alcoholic beverages. NOT make any important decisions or sign importortant papers. Do not return to work until tomorrow, unless otherwise instructed. Resume previous activities tomorrow. Diet: Start by taking liquids. If you tolerate liquids, advance to solid food. 1.: EGD in 3 years 2.: Colonscopy in 5 years Notify Physician - If you experience excessive bleeding, unusual abdominal pain, fever, or chest pain, contact your doctor immediately. ZO LOZANO DO Jun 22, 2021 12:23
[2021-06-22 12:47] VITALS: BP 155/66
--- NOTE | 2021-06-22 13:12 | Anesthesia-General Post-Op ---
MAC Patient Condition Mental Status/LOC: Same as Preop Cardiovascular: Satisfactory Nausea/Vomiting: Absent Respiratory: Satisfactory Pain: Controlled Complications: Absent Post Op Complications Complications None Follow Up Care/Instructions Patient Instructions None needed. Anesthesiology Discharge Order Discharge Order Patient is doing well, no complaints, stable vital signs, no apparent adverse anesthesia problems. No complications reported per nursing. YUNI THRASHER CRNA Jun 22, 2021 13:12
== END 2021-06-22 13:25 | disposition home or self-care (01) ==
LOC: ENDO 09:44
PROVIDERS: ATTEND Surgery
DX: Z12.11 Encounter for screening for malignant neoplasm of colon (principal); D12.4 Benign neoplasm of descending colon; K63.5 Polyp of colon; K29.70 Gastritis, unspecified, without bleeding; K44.9 Diaphragmatic hernia without obstruction or gangrene; K57.90 Diverticulosis of intestine, part unspecified, without perforation or abscess without bleeding; K64.8 Other hemorrhoids; I10 Essential (primary) hypertension; I25.10 Atherosclerotic heart disease of native coronary artery without angina pectoris; Z95.2 Presence of prosthetic heart valve; Z95.1 Presence of aortocoronary bypass graft; E11.9 Type 2 diabetes mellitus without complications; E78.5 Hyperlipidemia, unspecified; I27.20 Pulmonary hypertension, unspecified; Z79.899 Other long term (current) drug therapy; Z79.01 Long term (current) use of anticoagulants; Z87.891 Personal history of nicotine dependence; Z82.49 Family history of ischemic heart disease and other diseases of the circulatory system; F41.9 Anxiety disorder, unspecified

== ENCOUNTER → 2021-10-05 | Outpatient (CLI) | payer OTHER ==
--- NOTE | 2021-10-05 15:49 | Diagnostic Imaging Report ---
CT Lung Screening INDICATION: 51-ecti-jqwy smoking history, for low-dose screening. TECHNIQUE: Noncontrast, low-dose CT imaging performed according to the lung cancer screening protocol. Auto Exposure Controls were utilized during the CT exam to meet ALARA standards for radiation dose reduction. COMPARISON: Routine post contrasted chest CT 03/12/2011. FINDINGS: Some subpleural scarring in the left upper lobe anteromedially showed mild interval progression but is a chronic finding. A benign calcified granuloma subpleural right upper lobe is chronic. There is new tree-in-bud nodularity and infiltrate in the left lower lobe. Heterogeneous air trapping and features of COPD as a chronic finding have progressed. There is a retrocardiac hiatal hernia, chronic but increased. No effusion or pneumothorax. No thoracic lymphadenopathy. No dominant lung mass or findings felt suggestive of lung cancer. No adenopathy. There are coronary artery atherosclerotic vascular calcifications. Previous sternotomy without dehiscence and a nonaneurysmal atherosclerotic aorta, chronic. The visualized upper abdomen is nonacute. IMPRESSION: Lung-RADS Category 2. No findings of lung cancer. LUNG-RADS CATEGORY: 2. MODIFIER: None. OTHER SIGNIFICANT FINDINGS: Worsened COPD. New tree-in-bud nodularity in the left lower lobe consistent with infectious etiology. Nonaneurysmal atherosclerosis. No acute pleural pathology. Dictated by: Dictated on workstation # [id number]
== END ==
LOC: RAD 13:45
PROVIDERS: ATTEND Hospitalist
DX: Z12.2 Encounter for screening for malignant neoplasm of respiratory organs (principal); Z87.891 Personal history of nicotine dependence
CPT/HCPCS: 71271

== ENCOUNTER 2022-11-10 14:36 | Emergency (ER) | payer OTHER ==
[~2022-11-10] VITALS: Ht 175.3 cm; Wt 104.3 kg
[~2022-11-10 14:36] MED LIST changes: +BUPR-105 PO; -BUPR150T14 PO
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
[2022-11-10 15:51] VITALS: BP 172/75
== END 2022-11-10 15:51 | disposition home or self-care (01) ==
LOC: EDUNIT# 14:36 → ER 14:40
DX: S09.90XA Unspecified injury of head, initial encounter (principal); S61.012A Laceration without foreign body of left thumb without damage to nail, initial encounter; S00.83XA Contusion of other part of head, initial encounter; M54.2 Cervicalgia; R40.2362 Coma scale, best motor response, obeys commands, at arrival to emergency department; R40.2142 Coma scale, eyes open, spontaneous, at arrival to emergency department; R40.2252 Coma scale, best verbal response, oriented, at arrival to emergency department; Z79.01 Long term (current) use of anticoagulants; Z87.891 Personal history of nicotine dependence; V89.2XXA Person injured in unspecified motor-vehicle accident, traffic, initial encounter; Y92.410 Unspecified street and highway as the place of occurrence of the external cause
CPT/HCPCS: 70450; 72125

== ENCOUNTER 2022-11-10 16:51 | Emergency (ER) | payer OTHER ==
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
[2022-11-10 17:39] LABS: INR 2.4 (0.8-1.4); PROTHROMBIN TIME PATIENT 26.3 SEC (12.2-14.7)
[2022-11-10 17:49] VITALS: BP 182/77
== END 2022-11-10 17:50 | disposition home or self-care (01) ==
LOC: EDUNIT# 16:51 → ER 16:52
DX: S70.12XA Contusion of left thigh, initial encounter (principal); Z79.01 Long term (current) use of anticoagulants; V89.2XXA Person injured in unspecified motor-vehicle accident, traffic, initial encounter
CPT/HCPCS: 36415; 85610; 85730; 99281

== ENCOUNTER 2023-01-28 16:02 | Emergency (ER) | payer OTHER ==
[~2023-01-28] VITALS: Ht 175 cm; Wt 103.0 kg
--- NOTE | 2023-01-28 16:14 | ED Respiratory ---
General Chief Complaint: Respiratory Problems Stated Complaint: COUGH/SOA Source: patient Exam Limitations: no limitations History of Present Illness Date Seen by Provider: January 28, 2023 Time Seen by Provider: 16:05 Initial Comments 72-year-old male presents to the emergency department today for cough, shortness of breath. He also has issues with his sinuses feeling full of fluids. Symptoms started on . He was seen in the clinic on Tuesday and tested for COVID and strep which were negative. He was started on Augmentin. He was seen again on Tuesday and started on prednisone does have a history of COPD. He states his symptoms are not improving. Most concerning to him is his cough. He was also started on Tessalon Perles which have not really helped. He denies any chest pain. All other systems reviewed and negative except documented per HPI. Voice recognition software was used to help create this chart Allergies and Home Medications Allergies Coded Allergies: No Known Drug Allergies (Unverified , 10/10/17) Patient Home Medication List Home Medication List Reviewed: Yes Aspirin (Aspirin EC) 81 Mg Tablet.dr, 81 MG PO DAILY, (Reported) Entered as Reported by: BECKY RICHARD on 10/10/17 1341 Atorvastatin Calcium (Atorvastatin Calcium) 80 Mg Tablet, 80 MG PO DAILY, (Reported) Entered as Reported by: BECKY RICHARD on 10/10/17 1341 Bupropion HCl (Bupropion HCl Sr) 150 Mg Tablet.er, 150 MG PO DAILY, (Reported) Entered as Reported by: BECKY RICHARD on 10/10/17 1341 Donepezil HCl (Donepezil HCl) 10 Mg Tablet, 5 MG PO DAILY, (Reported) Entered as Reported by: BECKY RICHARD on 10/10/17 1341 Fluticasone Propionate (Fluticasone Propionate) 16 Gm [place].susp, 1 SPRAY NS BID, (Reported) Entered as Reported by: BECKY RICHARD on 10/10/17 1341 Guaifenesin/Dextromethorphan (Tussin Dm Clear Syrup) 100 Mg-10 Mg/5 Ml Syrup, 5 ML PO Q4H Prescribed by: PAULO BALDERAS MD on 01/28/23 1648 Hydrochlorothiazide (Hydrochlorothiazide) 25 Mg Tablet, 25 MG PO DAILY, (Reported) Entered as Reported by: BECKY RICHARD on 10/10/17 1341 Isosorbide Mononitrate (Isosorbide Mononitrate ER) 30 Mg Tab.er.24h, 30 MG PO DAILY, (Reported) Entered as Reported by: BECKY RICHARD on 10/10/17 134 Lisinopril (Lisinopril) 10 Mg Tablet, 5 MG PO DAILY, (Reported) Entered as Reported by: BECKY RICHARD on 10/10/17 134 Loratadine (Loratadine) 10 Mg Tablet, 10 MG PO DAILY, (Reported) Entered as Reported by: BECKY RICHARD on 10/10/17 134 Lorazepam (Lorazepam) 0.5 Mg Tablet, 0.5 MG PO DAILY PRN for ANXIETY, (Reported) Entered as Reported by: BECKY RICHARD on 10/10/17 134 Metformin HCl (Metformin HCl) 500 Mg Tablet, 500 MG PO DAILY, (Reported) Entered as Reported by: YOLANDA RYDER on 06/15/21 1438 [place] 3 Polyunsat Fatty Acids (Fish Oil 1,000 mg Capsule) 1,000 Mg Cap, 4,000 MG PO DAILY, (Reported) Entered as Reported by: BECKY RICHARD on 10/10/17 134 Pantoprazole Sodium (Pantoprazole Sodium) 20 Mg Tablet.dr, 20 MG PO DAILY, (Reported) Entered as Reported by: BECKY RICHARD on 10/10/17 134 Warfarin Sodium (Warfarin Sodium) 5 Mg Tablet, 12.5 MG PO SuFr, (Reported) Entered as Reported by: BECKY RICHARD on 10/10/17 134 Warfarin Sodium (Warfarin Sodium) 5 Mg Tablet, 10 MG PO MoTuWeThSa, (Reported) Entered as Reported by: BECKY RICHARD on 10/10/17 1341 Discontinued Medications Codeine Phosphate/Guaifenesin (Guaifen-Codeine 200-20 mg/10Ml) 20 Mg-200 Mg/10 Ml Liquid, 10 ML PO Q6H Prescribed by: PAULO BALDERAS MD on 01/28/23 1651 Last Action: Discontinued Review of Systems Review of Systems Constitutional: see HPI Past Vbowwge-Rydabg-Wcszav Hx Patient Social History Tobacco Use?: No Use of E-Cig and/or Vaping dev: No Substance use?: No Alcohol Use?: No Immunizations Up To Date Tetanus Booster (TDap): More than 5yrs PED Vaccines UTD: Yes First/Initial COVID19 Vaccinat: YES Second COVID19 Vaccination David: YES Third COVID19 Vaccination Date: YES Seasonal Allergies Seasonal Allergies: No Past Medical History Surgeries: Yes (PYLON CYST REMOVED-1970 & 1975) Cardiac, CABG Respiratory: Yes Pneumonia Currently Using CPAP: No Currently Using BIPAP: No Cardiac: Yes (OPEN HEART SURGERY, 3 BIPASSES, AORTIC VALVE REPLACEMENT) High Cholesterol, Hypertension Neurological: Yes (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) Reproductive Disorders: No Sexually Transmitted Disease: No HIV/AIDS: No Genitourinary: No Gastrointestinal: Yes Gastroesophageal Reflux Musculoskeletal: Yes (RIGHT ROTATOR CUFF DAMAGE, RIGHT ANKLE FX, 4 RIBS FX ON RIGHT SIDE) Arthritis, Fractures Endocrine: Yes Diabetes, Non-Insulin dep HEENT: Yes Cataract Loss of Vision: Denies Hearing Impairment: Denies Cancer: No Psychosocial: Yes Anxiety, Depression Integumentary: No Blood Disorders: No Adverse Reaction/Blood Tranf: No Family Medical History Reviewed Nursing Family Hx BIPASS G8 BROTHER G8 BROTHER G8 BROTHER G8 BROTHER FH: coronary artery disease G8 BROTHER G8 BROTHER G8 BROTHER G8 BROTHER Hypercholesterolemia 19 FATHER G8 BROTHER G8 BROTHER G8 BROTHER G8 BROTHER G8 SISTER Hypertension 19 FATHER G8 BROTHER G8 BROTHER G8 BROTHER G8 BROTHER G8 SISTER Myocardial infarction 19 FATHER Physical Exam Vital Signs - First Documented 01/28/23 16:05 Temp 36.7 Pulse 65 Resp 22 B/P (MAP) 152/78 (102) Pulse Ox 94 O2 Delivery Room Air Capillary Refill : Height: 5'9.00" Weight: 212lbs. 0.0oz. 96.063713ce; BMI Method:Stated General Appearance: WD/WN, no apparent distress HEENT: normal ENT inspection, pharynx normal Neck: non-tender, full range of motion, supple, normal inspection Respiratory: chest non-tender, no respiratory distress, no accessory muscle use, other (Coarse breath sounds bilaterally. No wheezing) Cardiovascular: regular rate, rhythm, no murmur Gastrointestinal: normal bowel sounds, non tender, soft, no organomegaly Extremities: normal range of motion, normal inspection, no pedal edema, normal capillary refill Neurologic/Psychiatric: alert, oriented x 3 Skin: normal color, warm/dry Progress/Results/Core Measures Suspected Sepsis SIRS Temperature: Pulse: Respiratory Rate: Laboratory Tests 01/28/23 16:14: White Blood Count 6.6 Blood Pressure / Mean: Laboratory Tests 01/28/23 16:14: Creatinine 0.89, Platelet Count 120L, Total Bilirubin 0.4 Results/Orders Lab Results Laboratory Tests Test 01/28/23 16:14 Range/Units White Blood Count 6.6 4.3-11.0 10^3/uL Red Blood Count 3.37 L 4.30-5.52 10^6/uL Hemoglobin 10.5 L 13.3-17.7 g/dL Hematocrit 31 L 40-54 % Mean Corpuscular Volume 93 80-99 fL Mean Corpuscular Hemoglobin 31 25-34 pg Mean Corpuscular Hemoglobin Concent 33 32-36 g/dL Red Cell Distribution Width 15.3 H 10.0-14.5 % Platelet Count 120 L 130-400 10^3/uL Mean Platelet Volume 11.7 9.0-12.2 fL Immature Granulocyte % (Auto) 4 % Neutrophils (%) (Auto) 67 42-75 % Lymphocytes (%) (Auto) 21 12-44 % Monocytes (%) (Auto) 7 0-12 % Eosinophils (%) (Auto) 0 0-10 % Basophils (%) (Auto) 1 0-10 % Neutrophils # (Auto) 4.4 1.8-7.8 X 10^3 Lymphocytes # (Auto) 1.4 1.0-4.0 X 10^3 Monocytes # (Auto) 0.5 0.0-1.0 X 10^3 Eosinophils # (Auto) 0.0 0.0-0.3 10^3/uL Basophils # (Auto) 0.0 0.0-0.1 10^3/uL Immature Granulocyte # (Auto) 0.3 H 0.0-0.1 10^3/uL Sodium Level 132 L 135-145 MMOL/L Potassium Level 4.0 3.6-5.0 MMOL/L Chloride Level 100 98-107 MMOL/L Carbon Dioxide Level 19 L 21-32 MMOL/L Anion Gap 13 5-14 MMOL/L Blood Urea Nitrogen 17 7-18 MG/DL Creatinine 0.89 0.60-1.30 MG/DL Estimat Glomerular Filtration Rate 90 BUN/Creatinine Ratio 19 Glucose Level 119 H 70-105 MG/DL Calcium Level 8.4 L 8.5-10.1 MG/DL Corrected Calcium 8.4 L 8.5-10.1 MG/DL Total Bilirubin 0.4 0.1-1.0 MG/DL Aspartate Amino Transf (AST/SGOT) 67 H 5-34 U/L Alanine Aminotransferase (ALT/SGPT) 79 H 0-55 U/L Alkaline Phosphatase 88 40-136 U/L Total Protein 7.9 6.4-8.2 GM/DL Albumin 4.0 3.2-4.5 GM/DL My Orders Orders - PAULO BALDERAS DO Comprehensive Metabolic Panel (01/28/23 16:11) Chest Pa/Lat (2 View) (01/28/23 16:11) Cbc With Automated Diff (01/28/23 16:11) Vital Signs/I&O 01/28/23 01/28/23 16:05 17:04 Temp 36.7 Pulse 65 58 Resp 22 18 B/P (MAP) 152/78 (102) 127/65 Pulse Ox 94 92 O2 Delivery Room Air Room Air Capillary Refill : Departure Communication (Admissions) Patient is hemodynamically stable. Chest x-ray on my independent review shows no acute cardiopulmonary process. No bony abnormalities. His oxygen saturation is 94 to 96% on room air. He is not tachycardic and afebrile. He is already on Augmentin and prednisone as well. This likely viral in origin versus COPD exacerbation. He is given codeine cough syrup as the cough is his main concern today. He is discharged home in stable condition. He had already been tested for COVID and was negative. Impression Primary Impression: COPD exacerbation Disposition: 01 HOME, SELF-CARE Condition: Stable Departure-Patient Inst. Referrals: [facility] (PCP/Family) Primary Care Physician Patient Instructions: Chronic Obstructive Pulmonary Disease (COPD), Including Emphysema Add. Discharge Instructions: Use the cough medication as prescribed as needed. This may make you drowsy so do not drive or make important decisions while taking it. Chest x-ray is clear, no evidence for pneumonia. Continue your Augmentin and prednisone as previously prescribed. Use your inhalers and nebulizers at home as needed. Follow-up with your primary doctor should your symptoms persist. Return to the emergency department for any severe concerns. All discharge instructions reviewed with patient and/or family. Voiced understanding. Scripts Guaifenesin/Dextromethorphan (Tussin Dm Clear Syrup) 100 Mg-10 Mg/5 Ml Syrup 5 ML PO Q4H for Cough for 3 Days, #90 ML Prov: PAULO BALDERAS DO 01/28/23 PAULO BALDERAS DO January 28, 2023 16:14
[2023-01-28 16:17] LABS: BASOPHILS % (AUTO) 1 % (0-10); EOSINOPHILS % (AUTO) 0 % (0-10); HEMATOCRIT 31 % (40-54); HEMOGLOBIN 10.5 g/dL (13.3-17.7); LYMPHOCYTES # (AUTO) 1.4 X 10^3 (1.0-4.0); LYMPHOCYTES % (AUTO) 21 % (12-44); MEAN CORPUSCULAR HEMOGLOBIN 31 pg (25-34); MEAN CORPUSCULAR HGB CONC 33 g/dL (32-36); MEAN CORPUSCULAR VOLUME 93 fL (80-99); MEAN PLATELET VOLUME 11.7 fL (9.0-12.2); MONOCYTES # (AUTO) 0.5 X 10^3 (0.0-1.0); MONOCYTES % (AUTO) 7 % (0-12); NEUTROPHILS # (AUTO) 4.4 X 10^3 (1.8-7.8); NEUTROPHILS % (AUTO) 67 % (42-75); PLATELET COUNT 120 10^3/uL (130-400); WHITE BLOOD COUNT 6.6 10^3/uL (4.3-11.0)
[2023-01-28 16:29] LABS: CALCIUM 8.4 MG/DL (8.5-10.1)
[2023-01-28 16:30] LABS: TOTAL PROTEIN 7.9 GM/DL (6.4-8.2)
[2023-01-28 16:32] LABS: BILIRUBIN,TOTAL 0.4 MG/DL (0.1-1.0)
[2023-01-28 16:34] LABS: CREATININE SERUM 0.89 MG/DL (0.60-1.30)
--- NOTE | 2023-01-28 16:39 | Diagnostic Imaging Report ---
INDICATION: Dyspnea and cough. PA and lateral chest obtained at 4:36 p.m. FINDINGS: There is post-sternotomy change. There is a prosthetic aortic valve. There is no focal infiltrate or pneumothorax or pleural fluid. IMPRESSION: Postoperative change and aortic valve prosthesis. No acute process in the chest. Dictated by: Dictated on workstation # [id number]
[2023-01-28] MEDS ORDERED: [UNRECOGNIZED DRUG - CODE] PO (16:48)
[2023-01-28] MEDS ORDERED: CODE10LI PO (16:50)
[2023-01-28 17:04] VITALS: BP 127/65
== END 2023-01-28 17:05 | disposition home or self-care (01) ==
LOC: EDUNIT# 16:02 → ER 16:05
DX: J44.1 Chronic obstructive pulmonary disease with (acute) exacerbation (principal)
CPT/HCPCS: 36415; 71046; 80053; 85025

== ENCOUNTER → 2023-05-03 | Outpatient (CLI) | payer OTHER ==
[~2023-05-03] MED LIST changes: +CATHETER FLUSH 10 ML SYR IVP PRN; +CODE10LI PO; +REGADENOSON 0.4 MG/5 ML SYR (LEXISCAN) IV ONE; +[UNRECOGNIZED DRUG - CODE] PO
[2023-05-03 09:24] VITALS: BP 117/58
--- NOTE | 2023-05-03 19:54 | STRESS TEST ---
DATE OF SERVICE: 05/03/2023 RESTING AND POST REGADENOSON TECHNETIUM-99M TETROFOSMIN SPECT CT IMAGING ORDERING PHYSICIAN: Dr. Gianfranco Roper. PRIMARY PHYSICIAN: [facility]. Baseline images were carried out after injection of 10.37 mCi of technetium-99m tetrofosmin. This was followed by 0.4 mg regadenoson and 31.2 mCi of technetium-99m tetrofosmin for stress imaging. The electrocardiogram showed sinus rhythm and nonspecific intraventricular conduction delay. The electrocardiogram did not change significantly with the regadenoson infusion. Review of images at rest and following stress does not indicate any distinct perfusion defect consistent with significant myocardial ischemia or infarction. Gated images show normal global left ventricular systolic function with normal regional wall motion. Left ventricular ejection fraction is calculated to be 59%. CONCLUSIONS: 1. No evidence of significant myocardial ischemia or infarction on this study. 2. Normal regional wall motion. 3. Normal global left ventricular systolic function with a calculated ejection fraction of 59%. Job ID: [id number] DocumentID: [id number] Dictated Date: 05/03/2023 17:01:42 Board Turner Date: 05/03/2023 19:54:00 Dictated By: JAKI MERCHANT MD; RELL; FACP; FACC;
== END ==
LOC: CARD 07:35
PROVIDERS: ATTEND Hospitalist
DX: I25.709 Atherosclerosis of coronary artery bypass graft(s), unspecified, with unspecified angina pectoris (principal); I11.0 Hypertensive heart disease with heart failure; I50.9 Heart failure, unspecified
CPT/HCPCS: 78452; 93017

== ENCOUNTER → 2023-05-06 | Outpatient (CLI) | payer OTHER ==
[~2023-05-06] MED LIST changes: -CATHETER FLUSH 10 ML SYR IVP PRN; -REGADENOSON 0.4 MG/5 ML SYR (LEXISCAN) IV ONE
== END ==
LOC: CARD 10:58
PROVIDERS: ATTEND Hospitalist
DX: I25.799 Atherosclerosis of other coronary artery bypass graft(s) with unspecified angina pectoris (principal); Z95.1 Presence of aortocoronary bypass graft
CPT/HCPCS: 93306

== ENCOUNTER 2023-05-24 15:24 | Outpatient (CLI) | payer OTHER ==
[~2023-05-24] VITALS: Ht 175.3 cm; Wt 97.3 kg
[2023-05-25] MEDS ORDERED: EZET10TA49 PO (08:44)
[2023-05-25] MEDS ORDERED: FURO20TA4 PO (08:44)
[2023-05-25] MEDS ORDERED: WARF-48 PO ×2 (08:44)
[2023-05-25] MEDS ORDERED: TIOT18CA2 IH (08:44)
[2023-05-25] MEDS ORDERED: METF-397 PO (08:44)
[2023-05-25] MEDS ORDERED: IPRA4AER IH (08:44)
== END 2023-05-25 09:15 | disposition home or self-care (01) ==
LOC: PREOP 15:24
PROVIDERS: ATTEND Specialist
DX: Z01.818 Encounter for other preprocedural examination (principal)

== ENCOUNTER 2023-05-27 10:25 | Day surgery (SDC) | payer OTHER ==
[~2023-05-27] VITALS: Ht 175.3 cm; Wt 97.3 kg
[~2023-05-27 10:25] MED LIST changes: +EZET10TA49 PO; +FURO20TA4 PO; +IPRA4AER IH; +TIOT18CA2 IH
[2023-05-27] MEDS ORDERED: TIMOLOL 0.5% (CATARACTS) 0.3 ML BTL OU PRN (10:45)
[2023-05-27] MEDS ORDERED: LIDOCAINE PF 1% 2 ML VIAL IR PRN (10:45)
[2023-05-27] MEDS ORDERED: POVIDONE IODINE OPHTH SOLN 5% 30 ML OP ONE (10:45)
[2023-05-27] MEDS ORDERED: MOXIFLOXACIN OPHTH SOLN 5 MG/ML 0.3 ML SYRINGE OP ONE (10:45)
[2023-05-27] MEDS: TETRACAINE 0.5% OPHTH SOLN 4 ML BTL (SINGLE DOSE ONLY) OU PRN ×4 (10:51→11:08)
[2023-05-27 10:53] VITALS: BP 99/72
[2023-05-27] MEDS: TROPICAMIDE 1% OPH SOLN (MYDRIACYL) 15 ML BTL OP SCH ×3 (10:58→11:08)
[2023-05-27] MEDS: PHENYLEPHRINE 10% OPHTH SOLN 5 ML BTL OU SCH ×3 (10:58→11:08)
[2023-05-27] MEDS ORDERED: MIDAZOLAM INJ 2 MG/2 ML VIAL ONE (11:46)
--- NOTE | 2023-05-27 11:46 | Ophthalmologist Pre-Op Note ---
Pre-Operative Progress Note H&P Reviewed The H&P was reviewed, patient examined and no changes noted. Date H&P Reviewed: May 27, 2023 Time H&P Reviewed: 11:46 Pre-Op Dx Cataract, Left Eye SB LEPE MD May 27, 2023 11:46
--- NOTE | 2023-05-27 12:02 | Ophthalmology Operative Report ---
Cataract removal/placement IOL PREOPERATIVE DIAGNOSIS: Cataract Left Eye POSTOPERATIVE DIAGNOSIS: Cataract Left Eye PROCEDURE: Cataract removal and placement of posterior chamber implant, left eye SURGEON: Derrell Lepe ANESTHESIA: Topical with sedation COMPLICATIONS: None ESTIMATED BLOOD LOSS: Minimal DESCRIPTION OF PROCEDURE: After proper informed consent was obtained, the patient, a 72 male, was taken to the Operating Room and the left eye was anesthetized with tetracaine. The left eye was then prepped and draped in the usual manner. A wire lid speculum was placed. A paracentesis was made at the left hand position. Preservative free lidocaine was injected into the anterior chamber followed by viscoelastic. A clear corneal incision was made in the temporal position. A capsulorrhexis was preformed and the central nuclear and cortical material were removed. The posterior capsule was polished and an Rene 19.5 AU00T0 was placed into the capsular bag. The residual viscoelastic was aspirated and balanced saline solution was injected into the anterior chamber. Moxifloxacin was injected into the anterior chamber. The wound was checked and found to be water tight. The patient tolerated the procedure well without complications. DERRELL LEPE MD May 27, 2023 12:02
[2023-05-27 12:21] VITALS: BP 88/54
--- NOTE | 2023-05-27 12:59 | Anesthesia-General Post-Op ---
MAC Patient Condition Mental Status/LOC: Same as Preop Cardiovascular: Satisfactory Nausea/Vomiting: Absent Respiratory: Satisfactory Pain: Controlled Complications: Absent Post Op Complications Complications None Follow Up Care/Instructions Patient Instructions None needed. Anesthesiology Discharge Order Discharge Order Patient is doing well, no complaints, stable vital signs, no apparent adverse anesthesia problems. No complications reported per nursing. SAMMY RUIZ CRNA May 27, 2023 12:59
== END 2023-05-27 12:15 | disposition home or self-care (01) ==
LOC: SDC 10:25
PROVIDERS: ATTEND Specialist
DX: E11.36 Type 2 diabetes mellitus with diabetic cataract (principal); H25.9 Unspecified age-related cataract; Z87.891 Personal history of nicotine dependence; Z79.84 Long term (current) use of oral hypoglycemic drugs

== ENCOUNTER 2023-05-31 10:05 | Outpatient (CLI) | payer OTHER | END 2023-05-31 14:03 | disposition home or self-care (01) | LOC: PREOP 10:05 | PROVIDERS: ATTEND Specialist | DX: Z01.818 Encounter for other preprocedural examination (principal) ==

== ENCOUNTER 2023-06-22 07:36 | Day surgery (SDC) | payer OTHER ==
--- NOTE | 2023-06-13 09:31 | HISTORY AND PHYSICAL ---
This will be for outpatient surgery on 06/22/2023 for right rotator cuff repair. HISTORY: The patient is a 72-year-old right hand dominant gentleman with longstanding progressive right shoulder pain. He has been treated with physical therapy as well as injections without relief of his symptoms. He has known rotator cuff tear on MRI of the supraspinatus. He reports functional impairment. He reports pain on the lateral aspect of the shoulder. Due to failure to improve with conservative measures, the patient elected to proceed with surgical intervention. REVIEW OF SYSTEMS: No chest pain, no shortness of breath, no dysuria. PAST MEDICAL HISTORY: Reflux, hyperlipidemia, hypertension, aortic valve disease, COPD. PAST SURGICAL HISTORY: Aortic valve replacement, coronary artery bypass, hemorrhoidectomy, pilonidal cyst excision, vasectomy, cholecystectomy. FAMILY HISTORY: Significant for chronic obstructive pulmonary disease, ischemic heart disease and hypertension. PRIMARY CARE PROVIDER: Dr. Haider. MEDICATIONS: Donepezil, lisinopril, hydrochlorothiazide, pantoprazole, metformin, isosorbide, aspirin, atorvastatin, Flonase, Combivent, warfarin, Singulair, meloxicam, fish oil, cetirizine, azithromycin. ALLERGIES: No known drug allergies. SOCIAL HISTORY: The patient is a former smoker. Denies alcohol use. PHYSICAL EXAMINATION: GENERAL: The patient is well-developed, well-nourished, in no acute distress. HEENT: Normocephalic, atraumatic. Pupils equal, round, reactive to light. Oropharynx is clear. NECK: Supple. No lymphadenopathy. LUNGS: Clear to auscultation bilaterally. HEART: Regular rate and rhythm. ABDOMEN: Soft, nontender, nondistended. EXTREMITIES: The right shoulder demonstrates positive Neer's and positive Hawkin sign. He has weakness with abduction and external rotation. He has active forward elevation to 170 degrees, external rotation to 70 degrees, internal rotation to his belt line. He has a negative Spurling's maneuver. IMPRESSION: Right shoulder rotator cuff tear. PLAN: Right shoulder arthroscopy with acromioplasty and open rotator cuff repair. The risks, benefits, options, ramifications and recovery have been discussed at length with the patient. He understands and wishes to proceed. Job ID: [id number] DocumentID: [id number] Dictated Date: 06/06/2023 12:52:21 Playground Official Date: 06/06/2023 19:03:00 Dictated By: MARILYNN VITALE MD
--- NOTE | 2023-06-21 10:19 | Anesthesia-General Post-Op ---
General Patient Condition Mental Status/LOC: Same as Preop Cardiovascular: Satisfactory Nausea/Vomiting: Absent Respiratory: Satisfactory Pain: Controlled Complications: Absent Post Op Complications Complications None Follow Up Care/Instructions Patient Instructions None needed. Anesthesia/Patient Condition Patient Condition Patient is doing well, no complaints, stable vital signs, no apparent adverse anesthesia problems. No complications reported per nursing. YUNI THRASHER CRNA Jun 21, 2023 10:19
[2023-06-22] VITALS (13 sets, daily range): BP systolic 103–165; BP diastolic 53–80
[~2023-06-22] VITALS: Ht 175.3 cm; Wt 93.6 kg
[~2023-06-22 07:36] MED LIST changes: +oxyCODONE/ACETAMINOPHEN 5/325MG TABLET PO PRN
[2023-06-22] MEDS ORDERED: NS (IVPB) 50 ML 50 ML ONE (08:15)
[2023-06-22] MEDS ORDERED: ceFAZolin INJECTION 2,000 MG ONE (08:15)
[2023-06-22] MEDS ORDERED: FAMOTIDINE INJ 20MG/2ML VIAL ONE (08:27)
[2023-06-22] MEDS ORDERED: FAMOTIDINE INJ 20MG/2ML VIAL IVP ONE (08:30)
[2023-06-22] MEDS ORDERED: LACTATED RINGERS 1,000 ML 1,000 ML IV PRN (08:30)
[2023-06-22] MEDS ORDERED: ceFAZolin INJECTION 2,000 MG in NS (IVPB) 50 ML 50 ML IV ONE (08:30)
[2023-06-22] MEDS ORDERED: ROCURONIUM 50 MG/5 ML VIAL IV ONE (09:05)
[2023-06-22] MEDS ORDERED: fentaNYL INJECTION 100 MCG/2 ML VIAL ONE (09:05)
[2023-06-22] MEDS ORDERED: proPOfol INJECTION 200 MG/20 ML VIAL IV ONE (09:05)
[2023-06-22] MEDS ORDERED: LIDOCAINE PF 2% 5 ML VIAL ONE (09:05)
[2023-06-22] MEDS ORDERED: ONDANSETRON INJECTION 4 MG/2 ML (SDV) ONE (09:05)
[2023-06-22] MEDS ORDERED: morphine PRESERVATIVE free 10 MG/10 ML AMP ONE (09:17)
[2023-06-22] MEDS ORDERED: BUPIVACAINE 0.25% 30 ML VIAL ONE (09:17)
[2023-06-22] MEDS ORDERED: ENOX150D4 SQ (09:49)
[2023-06-22] MEDS ORDERED: morphine PRESERVATIVE free 10 MG/10 ML AMP INJ ONE (10:55)
[2023-06-22] MEDS ORDERED: BUPIVACAINE 0.25% 30 ML VIAL INJ ONE (10:56)
[2023-06-22] MEDS ORDERED: NEOSTIGMINE 1 MG/1ML 10 ML VIAL ONE (11:14)
[2023-06-22] MEDS ORDERED: GLYCOPYRROLATE INJ 0.2 MG/ML 2 ML VIAL ONE (11:14)
[2023-06-22] MEDS ORDERED: SEVOFLURANE (ULTANE) 15 ML INHAL SOLN ONE (11:17)
--- NOTE | 2023-06-22 11:26 | Progress Note-Pre Operative ---
Pre-Operative Progress Note Date of Available H&P: Jun 13, 2023 Date H&P Reviewed: Jun 22, 2023 Time H&P Reviewed: 07:11 Changes from last HP none Pre-Operative Diagnosis: right chronic rotator cuff and SLAP tears MARILYNN VITALE MD Jun 22, 2023 11:26
--- NOTE | 2023-06-22 11:28 | Progress Note-Post Operative ---
Post-Operative Progess Note Surgeon (s)/Cardiac Rehabilitation Specialist (s) Surgeon MARILYNN VITALE MD Cardiac Rehabilitation Specialist: Ermias Mendez Pre-Operative Diagnosis right chronic rotator cuff and SLAP tears Post-Operative Diagnosis right chronic rotator cuff and SLAP tears Procedure & Operative Findings Date of Procedure 06/22/23 Procedure Performed/Findings right shoulder arthroscopic biceps tenotomy, acromioplasty and open rotator cuff repair Anesthesia Type GETA Estimated Blood Loss Estimated blood loss (mL): minimal Specimens/Packing Specimens Removed none Packing: none MARILYNN VITALE MD Jun 22, 2023 11:28
[2023-06-22] MEDS ORDERED: ONDANSETRON INJECTION 4 MG/2 ML (SDV) IVP PRN (11:30)
[2023-06-22] MEDS ORDERED: HYDROmorphone INJECTION 2 MG/ML VIAL IV ONE (11:30)
[2023-06-22] MEDS ORDERED: morphine INJ 10 MG/ML 1ML (SYR OR VIAL) IVP ONE (11:30)
--- NOTE | 2023-06-22 14:40 | Anesthesia-General Post-Op ---
General Patient Condition Mental Status/LOC: Same as Preop Cardiovascular: Satisfactory Nausea/Vomiting: Absent Respiratory: Satisfactory Pain: Controlled Complications: Absent Post Op Complications Complications None Follow Up Care/Instructions Patient Instructions None needed. Anesthesia/Patient Condition Patient Condition Patient is doing well, no complaints, stable vital signs, no apparent adverse anesthesia problems. No complications reported per nursing. BUDDY MIR CRNA Jun 22, 2023 14:40
--- NOTE | 2023-06-22 19:35 | OPERATIVE REPORT ---
DATE OF SERVICE: 06/22/2023 PREOPERATIVE DIAGNOSES: 1. Right chronic rotator cuff tear. 2. Right shoulder SLAP tear. POSTOPERATIVE DIAGNOSES: 1. Right chronic rotator cuff tear. 2. Right shoulder SLAP tear. PROCEDURES: 1. Right shoulder open rotator cuff repair. 2. Right shoulder arthroscopic biceps tenotomy. 3. Right shoulder arthroscopic acromioplasty. SURGEON: Singh Ruiz MD DELIVERY MGR: Ermias Mendez, who assisted throughout the procedure and closed the incisions. ANESTHESIA: General endotracheal by Jaime Wang CRNA. ESTIMATED BLOOD LOSS: Minimal. DRAINS: None. COMPLICATIONS: None. POSTOPERATIVE PLAN: Sling wear and passive range of motion for 4 weeks. The patient was transported to the recovery room awake and in stable condition. STATEMENT OF MEDICAL NECESSITY: The patient is a 72-year-old right hand dominant gentleman with longstanding progressive right shoulder pain and weakness. An MRI revealed a full-thickness supraspinatus tear. He tried rest, activity modifications and anti-inflammatories without relief. Due to functional impairment and failure to improve with conservative measures, the patient elected to proceed with surgical intervention. Examination under anesthesia revealed forward elevation of 170 degrees, external rotation of 80 degrees, internal rotation of 70 degrees. ARTHROSCOPIC FINDINGS: The supraspinatus demonstrated a mid substance tear with approximately 2 cm of retraction. The remainder of the rotator cuff was intact. There was a type 2 SLAP tear. The remainder of the labrum was intact. There was no significant glenoid or humeral head articular wear. Subacromial space demonstrated dense bursitis with sloping the anterolateral acromion. DESCRIPTION OF PROCEDURE: After risks and benefits of the procedure were discussed and questions were answered and informed consent was signed and placed on chart, the operative site was confirmed in the preoperative holding area initialed by surgeon. The patient was then transferred to the operating room. After adequate levels of general endotracheal anesthetic were obtained, a timeout was called, confirming the operative site. Examination under anesthesia was performed with the above findings noted. The right shoulder and upper extremity were prepped and draped in the usual sterile fashion. The shoulder joint was injected with 20 mL fluid as was the subacromial space. A standard posterior portal was placed under direct visualization, anterior portal was created. The interval between biceps, subscapularis and glenoid. A diagnostic arthroscopy was carried out with the above findings noted. The biceps anchor was released. The stump was debrided with a shaver. The scope and instruments were then redirected into the subacromial space and a lateral portal was created. A bursectomy was performed and acromion was planed to a flat type 1 acromion. The lateral portal was then extended and rotator cuff tear was mobilized. A single corkscrew anchor was placed and a modified Jose-Randal repair was performed with excellent repair obtained no undue tension was noted with the arm at the side with the wounds copiously irrigated. The deltoid was repaired in a [id number] fashion using #2 FiberWire in [id number] interrupted fashion. The wound was further irrigated, 3-0 Vicryl was used for subcutaneous tissue and skin was closed with 4-0 nylon in a running alternating horizontal mattress fashion. The port sites were closed with 4-0 nylon in simple interrupted fashion. Incisions were infiltrated with plain Marcaine. The shoulder joint was injected with Duramorph. A soft dressing and sling were applied. The patient was transferred to recovery room awake and in stable condition. Job ID: [id number] DocumentID: [id number] Dictated Date: 06/22/2023 11:27:42 Chief [employer]electric Station Operator Date: 06/22/2023 19:33:00 Dictated By: SINGH RUIZ MD
== END 2023-06-22 13:40 ==
LOC: SDC 07:36
PROVIDERS: ATTEND Orthopaedic Surgery
DX: M75.101 Unspecified rotator cuff tear or rupture of right shoulder, not specified as traumatic (principal); S43.431A Superior glenoid labrum lesion of right shoulder, initial encounter; E66.9 Obesity, unspecified; F17.210 Nicotine dependence, cigarettes, uncomplicated; Z68.30 Body mass index [BMI] 30.0-30.9, adult
CPT/HCPCS: 82947; 87081